=== PATIENT | female | born 1935 | race Caucasian/White ===

== ENCOUNTER 2019-12-10 13:38 | Outpatient (CLI) | payer MEDICARE, OTHER, SELFPAY ==
--- NOTE | 2019-12-10 13:47 | MM_ITS ---
WS: [id number] SCREENING DIGITAL MAMMOGRAM WITH CAD HISTORY: SCREENING COMPARISON: 09/25/2012 and 11/01/2010 Bilateral CC and MLO views submitted. Computer aided detection analyzed. Breast composition: The breasts are heterogeneously dense, which may obscure small masses. New curvil inear area of increasing calcifications near 6:00 RIGHT breast. There are additional scattered benign calcifications. Long-term stability of the mass measuring 8 mm in the inferomedial quadrant. RIGHT BREAST: Magnification views of suspicious calcification CC and MLO. True ML. MM/[place] [id number] IMPRESSION: BI-RADS: 0-Incomplete: Need additional imaging evaluation FOLLOW UP: Need Additional Imaging
== END 2019-12-10 13:39 | disposition home or self-care (01) ==
LOC: RADSHAW 13:45
PROVIDERS: Family Provider Family Medicine; PCP Family Medicine; Visit Provider Nurse Practitioner Family
DX: Z12.31 Encounter for screening mammogram for malignant neoplasm of breast (principal)
CPT/HCPCS: 77067

== ENCOUNTER 2019-12-31 09:08 | Outpatient (CLI) | payer MEDICARE, OTHER, SELFPAY ==
--- NOTE | 2019-12-31 09:16 | MM_ITS ---
WS: [id number] ADDITIONAL VIEWS RIGHT BREAST HISTORY: RT BREAST CALCIFICATIONS COMPARISON: 12/10/2019, 09/25/2012 Magnification views right CC and MLO projection. True ML also submitted. Curvilinear area of calcifications persists in the posterior medial RIGHT breast. There are several s mall clusters of calcifications which are new since 2011. Most concerning configuration is in a linea r distribution. There is additional cluster of calcifications which may be associated with a soft tis zuleyka mass which is slightly more anterior and centrally. MM/[place] [id number] IMPRESSION: BI-RADS: 4B-Suspicious: Intermediate FOLLOW-UP: Biopsy Recommended Stereotactic biopsy recommended of 2 cluster of calcifications in the posterior medial RIGHT breast. These clusters are very closely associated with each othe r and should be readily accessible for stereotactic biopsy.
== END 2019-12-31 09:09 | disposition home or self-care (01) ==
LOC: RADSHAW 09:12
PROVIDERS: Family Provider Family Medicine; PCP Family Medicine; Visit Provider Family Medicine
DX: N63.10 Unspecified lump in the right breast, unspecified quadrant (principal)
CPT/HCPCS: 77065

== ENCOUNTER 2020-01-09 12:02 | Outpatient (CLI) | payer MEDICARE, OTHER, SELFPAY ==
--- NOTE | 2020-01-09 12:09 | MM_ITS ---
WS: [id number] STEREOTACTIC RIGHT BREAST BIOPSY WITH VACUUM ASSISTANCE HISTORY: RT BREAST CALCIFICATION COMPARISON: 12/31/2019, 11/30/2019, 09/25/2012 Procedure, risks and complications were explained to the patient. Medications and prior radiographs a re reviewed. RIGHT breast calcifications are located. Calcifications are targeted in the MLO projection. The skin is cleansed with ChloraPrep and anesthetized with 1% buffered lidocaine. Deeper soft tissues anesthet ized with a combination of lidocaine and epinephrine. Small dermatome is made. Needle advanced into t he RIGHT breast. Stereotactic imaging reveals appropriate positioning adjacent calcifications. Multip le vacuum-assisted core biopsies are obtained. No complications were encountered. Post biopsy specimen radiograph reveals numerous calcifications. Biopsy clip is placed in the cavity. Post imaging reveals good placement of the clip. No migration. Pressures held for approximately 15 minutes. No bleeding. Dressing applied. Patient discharged with n o complications. There is no bleeding. With any questions or complications patient is to return. MM/[place] [id number] IMPRESSION: 1. Uncomplicated RIGHT breast stereotactic biopsy. 2. Specimen contains numerous calcifications. Pathology: Focal benign, hyalinized adenomatous change with dystrophic calcific ations. No atypia or malignancy. RECOMMENDATION: Diagnostic RIGHT mammogram in 6 months.
--- NOTE | 2020-01-09 12:09 | MM_ITS ---
WS: [id number] STEREOTACTIC RIGHT BREAST BIOPSY WITH VACUUM ASSISTANCE HISTORY: RT BREAST CALCIFICATION COMPARISON: 12/31/2019, 11/30/2019, 09/25/2012 Procedure, risks and complications were explained to the patient. Medications and prior radiographs a re reviewed. RIGHT breast calcifications are located. Calcifications are targeted in the MLO projection. The skin is cleansed with ChloraPrep and anesthetized with 1% buffered lidocaine. Deeper soft tissues anesthet ized with a combination of lidocaine and epinephrine. Small dermatome is made. Needle advanced into t he RIGHT breast. Stereotactic imaging reveals appropriate positioning adjacent calcifications. Multip le vacuum-assisted core biopsies are obtained. No complications were encountered. Post biopsy specimen radiograph reveals numerous calcifications. Biopsy clip is placed in the cavity. Post imaging reveals good placement of the clip. No migration. Pressures held for approximately 15 minutes. No bleeding. Dressing applied. Patient discharged with n o complications. There is no bleeding. With any questions or complications patient is to return. MM/[place] [id number] IMPRESSION: 1. Uncomplicated RIGHT breast stereotactic biopsy. 2. Specimen contains numerous calcifications. Pathology: Focal benign, hyalinized adenomatous change with dystrophic calcific ations. No atypia or malignancy. RECOMMENDATION: Diagnostic RIGHT mammogram in 6 months.
--- NOTE | 2020-01-09 12:09 | MM_ITS ---
WS: [id number] STEREOTACTIC RIGHT BREAST BIOPSY WITH VACUUM ASSISTANCE HISTORY: RT BREAST CALCIFICATION COMPARISON: 12/31/2019, 11/30/2019, 09/25/2012 Procedure, risks and complications were explained to the patient. Medications and prior radiographs a re reviewed. RIGHT breast calcifications are located. Calcifications are targeted in the MLO projection. The skin is cleansed with ChloraPrep and anesthetized with 1% buffered lidocaine. Deeper soft tissues anesthet ized with a combination of lidocaine and epinephrine. Small dermatome is made. Needle advanced into t he RIGHT breast. Stereotactic imaging reveals appropriate positioning adjacent calcifications. Multip le vacuum-assisted core biopsies are obtained. No complications were encountered. Post biopsy specimen radiograph reveals numerous calcifications. Biopsy clip is placed in the cavity. Post imaging reveals good placement of the clip. No migration. Pressures held for approximately 15 minutes. No bleeding. Dressing applied. Patient discharged with n o complications. There is no bleeding. With any questions or complications patient is to return. MM/MM surgical specimen RT IMPRESSION: 1. Uncomplicated RIGHT breast stereotactic biopsy. 2. Specimen contains numerous calcifications. Pathology: Focal benign, hyalinized adenomatous change with dystrophic calcific ations. No atypia or malignancy. RECOMMENDATION: Diagnostic RIGHT mammogram in 6 months.
[2020-01-09 12:47] LABS: INR 1.14 (0.8-1.2)
== END 2020-01-09 12:03 | disposition home or self-care (01) ==
LOC: RADSHAW 12:05
PROVIDERS: Family Provider Family Medicine; PCP Family Medicine; Visit Provider Family Medicine
DX: R92.1 Mammographic calcification found on diagnostic imaging of breast (principal); Z01.812 Encounter for preprocedural laboratory examination; Z98.890 Other specified postprocedural states
CPT/HCPCS: 19081; 36415; 77065; 85610; 88305; J2001

== ENCOUNTER → 2020-04-21 10:07 | Outpatient (BNVA) | payer MEDICARE, OTHER, SELFPAY | PROVIDERS: Family Provider Family Medicine; PCP Family Medicine; Visit Provider Urology | DX: N39.0 Urinary tract infection, site not specified (principal) | CPT/HCPCS: 81001 ==

== ENCOUNTER → 2020-08-26 13:04 | Outpatient (BNVA) | payer MEDICARE, OTHER, SELFPAY | PROVIDERS: Family Provider Family Medicine; PCP Family Medicine; Visit Provider Urology | DX: N39.0 Urinary tract infection, site not specified (principal) | CPT/HCPCS: 81001 ==

== ENCOUNTER 2020-08-31 12:58 | Observation (INO) | payer MEDICARE, OTHER, SELFPAY ==
[2020-08-31 13:06] VITALS: BP 145/77; PULSE 95; RESP 18; TEMP 36.4; O2SAT 100; BMI 25.0
--- NOTE | 2020-08-31 13:24 | ECG_ITS ---
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 Measurements Intervals [place] Rate: 97 P: -3 ME: 141 QRS: 16 QRSD: 74 T: 38 QT: 320 QTc: 407 Interpretive Statements SINUS RHYTHM WARNING: DATA QUALITY MAY AFFECT INTERPRETATION Compared to ECG 12/31/2017 03:45:42 No significant changes Electronically Signed On 08-31-2020 21:40:45 CDT by Roxi Dickson M.D. [email or web address]/store/[id number] f
--- NOTE | 2020-08-31 13:25 | XRR_ITS ---
PROCEDURE INFORMATION: Exam: XR Chest, 1 View Exam date and time: 08/31/2020 1:28 PM Age: 85 years old Clinical indication: Cough and dyspnea and shortness of breath; Additional info: Dyspnea/cough TECHNIQUE: Imaging protocol: XR of the chest Views: 1 view. COMPARISON: CR Chest 1 [place] [id number] 12/31/2017 3:09 AM FINDINGS: Lungs: Unremarkable. No consolidation. Pleural space: Unremarkable. No pleural effusion. No pneumothorax. Heart/Mediastinum: Unremarkable. No cardiomegaly. Bones/joints: Unremarkable. XR/XR chest 1V portable [id number] IMPRESSION: No acute findings.
--- NOTE | 2020-08-31 13:27 | W.ED.GENADLT ---
HPI - General Adult General: Chief complaint: General Medical Stated complaint: sent from [facility]/ [facility]ri? Time Seen by Provider: 08/31/20 13:23 History of Present Illness: HPI narrative: 85-year-old female presents to the emergency room with complaints of rapid heart rate. Began this morning she was short of breath and tachycardic. She was seen at a local clinic and referred here. She had some chest discomfort this morning associated with this but that is resolved as well at this time she is pain-free. She denies any previous episodes like this. She has no known history of coronary artery disease. Onset (ago): hour(s) Location: chest Radiation: non-radiation Severity: moderate Relieving factors: none Exacerbating factors: none Associated symptoms: Reports chest pain and dyspnea; Deny malaise, nausea, rash or vomiting Review of Systems Const: Denies: fever(s), chills, body aches, change in appetite, fatigue or malaise ENMT: Denies: throat pain, ear or mastoid pain, nasal discharge or nasal congestion Card: Reports: chest pain Resp: Reports: dyspnea GI: Denies: abdominal pain, nausea, vomiting, hematemesis, coffee ground emesis, diarrhea, constipation, bloating, hematochezia or melena : Denies: flank pain, difficulty voiding, dysuria, urinary frequency or urinary urgency Skin/Breast: Denies: rash or pruritus PFSH ED PFSH: Medical History Diabetes HTN (hypertension) Hypothyroidism Recurrent UTI Urgency incontinence Surgical History H/O: knee surgery History of back surgery Family History Sister Cancer Social History Smoking and tobacco status: never smoked Alcohol intake: never Adopted: No Caregiver/support person: No Lives independently: Yes Marital status: Current occupational status: retired History of recent travel: No Current gender identity: Female Physical Exam Const: COMMON NORMALS: no acute distress GENERAL APPEARANCE: cooperative and comfortable ORIENTATION/CONSCIOUSNESS: Yes awake, Yes oriented to person, Yes oriented to place and Yes oriented to time HENMT: COMMON NORMALS: normocephalic, atraumatic and hearing grossly normal bilaterally HEAD & SCALP: normocephalic and atraumatic Neck/C-Spine: COMMON NORMALS: no JVD Resp: COMMON NORMALS: normal respiratory effort, No retractions, No use of accessory muscles and clear to auscultation bilaterally AUSCULTATION: clear to auscultation bilaterally Cardio: COMMON NORMALS: no JVD, regular rate, regular rhythm and No murmurs present (Cardio) RATE: regular rate RHYTHM: regular rhythm GI: COMMON NORMALS: Soft to palpation and No hepatosplenomegaly present AUSCULTATION: Yes normoactive bowel sounds PALPATION: Yes Soft to palpation, No Tenderness to palpation present (GI), No Guarding due to palpation present (GI) and Yes No hepatosplenomegaly present Extremity: COMMON NORMALS: normal to inspection, capillary refill normal, no clubbing, cyanosis or edema, no calf tenderness and no pedal edema Neuro: SENSORIUM/ORIENTATION: Yes oriented to person, Yes oriented to place and Yes oriented to time Skin: COMMON NORMALS: no rashes or lesions noted GENERAL SKIN EXAM: no rashes or lesions noted Course Vital Signs: Vital signs: Vital Signs Temperature 97.7 F 09/01/20 03:51 Pulse Rate 56 L 09/01/20 03:51 Respiratory Rate 20 H 09/01/20 03:51 Blood Pressure 137/71 09/01/20 03:51 Pulse Oximetry 97 09/01/20 03:51 MDM - General Adult MDM Narrative: Medical decision making narrative: Patient had a positive delta troponin. Her EKG remains normal and no documentation of A. fib although what she described certainly does sound like it. We will try to see if the outlying clinic she was seen at had an EKG or rhythm strip done to add to the chart discussed Dr. Pierce patient will be admitted for further evaluation. Lab Data: Labs: Lab Results 08/31/20 08/31/20 08/31/20 Range/Units 13:30 13:30 13:30 WBC 14.8 H (4.0-10.0) 10^3/ uL RBC 4.20 (4.1-5.3) 10^6/u L Hgb 12.5 (11.5-15.3) g/dL Hct 39.6 (37.0-47.0) % MCV 94.3 (81-99) fL MCH 29.8 (28.0-34.0) pg MCHC 31.6 (30.0-36.0) g/dL RDW 13.3 (12.1-15.1) % Plt Count 273 (130-400) 10^3/c mm MPV 11.9 H (7.4-10.4) fL Neut % (Auto) 55.4 % Lymph % (Auto) 35.2 % [place] % (Auto) 6.6 % Eos % (Auto) 1.4 % Baso % (Auto) 0.9 % Neut # (Auto) 8.20 H (1.8-7.7) 10^3/u L Lymph # (Auto) 5.2 H (0.8-4.8) 10^3/u L [place] # (Auto) 1.0 H (0.2-0.9) 10^3/u L Eos # (Auto) 0.2 (0.0-0.8) 10^3/u L Baso # (Auto) 0.1 (0.0-0.1) 10^3/u L Nucleated RBC % (a uto) 0 % Nucleated RBCs # 0.0 /100WBC Sodium 141 (136-145) mmol/L Potassium 4.3 (3.5-5.1) mmol/L Chloride 106 (98-107) mmol/L Carbon Dioxide 22 (22-29) mmol/L Anion Gap 17.3 (5-19) BUN 22 (8-23) mg/dL Creatinine 1.3 H (0.5-0.9) mg/dL GFR Calculation Not Reportable Glucose 127 H (65-115) mg/dL Calculated Osmolal ity 297 H (285-295) mOsm/k g Calcium 9.9 (8.5-10.5) mg/dL Total Bilirubin 0.4 (0.15-1.2) mg/dL AST 23 (0-32) U/L ALT 22 (0-33) U/L Alkaline Phosphata se 96 (35-105) IU/L Troponin T Baselin e 41 H (0-10) ng/L Troponin T 120 Min [place] (0-10) ng/L Delta Troponin T (0-10) ABS# Total Protein 6.6 (6.6-8.7) g/dL Albumin 4.3 (3.5-5.2) g/dL Globulin 2.3 (1.3-4.6) g/dL TSH 1.50 (0.27-4.20) uIU/ mL 08/31/20 08/31/20 Range/Units 15:30 15:30 WBC (4.0-10.0) 10^3/ uL RBC (4.1-5.3) 10^6/u L Hgb (11.5-15.3) g/dL Hct (37.0-47.0) % MCV (81-99) fL MCH (28.0-34.0) pg MCHC (30.0-36.0) g/dL RDW (12.1-15.1) % Plt Count (130-400) 10^3/c mm MPV (7.4-10.4) fL Neut % (Auto) % Lymph % (Auto) % [place] % (Auto) % Eos % (Auto) % Baso % (Auto) % Neut # (Auto) (1.8-7.7) 10^3/u L Lymph # (Auto) (0.8-4.8) 10^3/u L [place] # (Auto) (0.2-0.9) 10^3/u L Eos # (Auto) (0.0-0.8) 10^3/u L Baso # (Auto) (0.0-0.1) 10^3/u L Nucleated RBC % (a uto) % Nucleated RBCs # /100WBC Sodium (136-145) mmol/L Potassium (3.5-5.1) mmol/L Chloride (98-107) mmol/L Carbon Dioxide (22-29) mmol/L Anion Gap (5-19) BUN (8-23) mg/dL Creatinine (0.5-0.9) mg/dL GFR Calculation Glucose (65-115) mg/dL Calculated Osmolal ity (285-295) mOsm/k g Calcium (8.5-10.5) mg/dL Total Bilirubin (0.15-1.2) mg/dL AST (0-32) U/L ALT (0-33) U/L Alkaline Phosphata se (35-105) IU/L Troponin T Baselin e (0-10) ng/L Troponin T 120 Min [place] 45.84 H (0-10) ng/L Delta Troponin T 4.84 (0-10) ABS# Total Protein (6.6-8.7) g/dL Albumin (3.5-5.2) g/dL Globulin (1.3-4.6) g/dL TSH Cancelled (0.27-4.20) uIU/ mL Discharge Plan Discharge Patient Disposition: Admitted As Inpatient Admit Provider: Eben Pierce Discharge Date/Time: 08/31/20 18:10 Coding Level of Care Code ED Superintendent Greens for Laura Martinez
[2020-08-31 13:30] VITALS: BP 124/78; PULSE 92; RESP 19; O2SAT 97
[2020-08-31 13:39] LABS: Basophils # 0.1 10^3/uL (0.0-0.1); Basophils % 0.9 %; Eosinophils # 0.2 10^3/uL (0.0-0.8); Eosinophils % 1.4 %; Hematocrit 39.6 % (37.0-47.0); Hemoglobin 12.5 g/dL (11.5-15.3); Lymphocytes # 5.2 10^3/uL (0.8-4.8); Lymphocytes % 35.2 %; Mean Corpuscular HGB Conc 31.6 g/dL (30.0-36.0); Mean Corpuscular Hemoglobin 29.8 pg (28.0-34.0); Mean Corpuscular Volume 94.3 fL (81-99); Mean Platelet Volume 11.9 fL (7.4-10.4); Monocytes % 6.6 %; Neutrophils % 55.4 %; Nucleated Red Blood Cells % 0 %; Platelet Count 273 10^3/cmm (130-400); Red Cell Distribution Width 13.3 % (12.1-15.1); White Blood Count 14.8 10^3/uL (4.0-10.0)
[2020-08-31 14:06] LABS: Troponin(5th) Baseline 41 ng/L (0-10)
[2020-08-31 14:11] LABS: Alanine Aminotransferase 22 U/L (0-33); Albumin Level 4.3 g/dL (3.5-5.2); Alkaline Phosphatase 96 IU/L (35-105); Aspartate Amino Transferase 23 U/L (0-32); Blood Urea Nitrogen 22 mg/dL (8-23); Calcium 9.9 mg/dL (8.5-10.5); Carbon Dioxide 22 mmol/L (22-29); Chloride 106 mmol/L (98-107); Globulin 2.3 g/dL (1.3-4.6); Glucose 127 mg/dL (65-115); Osmolality Calculated 297 mOsm/kg (285-295); Sodium 141 mmol/L (136-145); Total Bilirubin 0.4 mg/dL (0.15-1.2); Total Protein 6.6 g/dL (6.6-8.7)
[2020-08-31 14:17] LABS: Anion Gap 17.3 (5-19)
[2020-08-31 14:18] LABS: Potassium 4.3 mmol/L (3.5-5.1)
[2020-08-31 14:48] VITALS: BP 122/74; PULSE 69; RESP 20; O2SAT 95
--- NOTE | 2020-08-31 15:24 | ECG_ITS ---
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 Measurements Intervals [place] Rate: 67 P: 47 AL: 159 QRS: 48 QRSD: 88 T: 67 QT: 402 QTc: 426 Interpretive Statements SINUS RHYTHM Compared to ECG 08/31/2020 15:23:56 No significant changes Electronically Signed On 08-31-2020 21:48:29 CDT by Roxi Dickson M.D. [id number]
[2020-08-31 15:57] LABS: Troponin 5 2HR 45.84 ng/L (0-10); Troponin 5 2HR Delta 4.84 ABS# (0-10)
[2020-08-31 16:35] VITALS: BP 145/95; PULSE 68; RESP 20; O2SAT 97
--- NOTE | 2020-08-31 17:40 | PM.HP ---
Providers/Chief Complaint Admitting Physician: Eben Pierce MD Primary Care Provider: Inocente Kennedy MD Chief Complaint: sent from [facility]? History of Present Illness Stephanie Quinones is a 85 year old female with past medical history of hypertension, diabetes, hypothyroidism, recurrent UTI on prophylactic antibiotic, was admitted after experiencing an episode of racing of heart this morning, the episode lasted for about couple of minutes, at that time she felt, mild substernal chest, dizziness, nausea. She subsequently came to [facility], EKG done at [facility], was suggestive of possible A. fib with RVR with heart rate in 160S. We do not have any EKG from [facility]. At the time of interview, she denied any, chest pain shortness of breath, cough, fever, nausea vomiting, chest pain upon inspiration, any sick contact. Review of Systems General: Reports: 10 or more systems reviewed and unremarkable except in HPI and below Const: Denies: fever(s), chills, body aches, change in appetite or diaphoresis Card: Denies: palpitations, edema, swelling of feet/ankles, dyspnea on exertion, orthopnea or leg pain with exertion Resp: Denies: dyspnea, productive cough, wheezing or pain on inspiration GI: Denies: abdominal pain, nausea, vomiting, diarrhea or constipation : Denies: flank pain Musc: Denies: back pain, extremity pain or extremity swelling Neuro: Denies: headache(s), difficulty walking or confusion Medications/Allergies Home Medications Medication Instructions Recorded Confirmed Last Taken Type alprazolam 0.5 mg tablet 0.5 mg PO DAILY 02/27/20 08/26/20 Unknown History aspirin 325 mg tablet 325 mg PO DAILY 02/27/20 08/26/20 Unknown History hydrochlorothiazide 12.5 mg tablet 12.5 mg PO DAILY 02/27/20 08/26/20 Unknown History levothyroxine 112 mcg capsule 112 mcg PO DAILY 02/27/20 08/26/20 Unknown History losartan 100 mg tablet 100 mg PO DAILY 02/27/20 08/26/20 Unknown History metformin 500 mg tablet 500 mg PO DAILY 02/27/20 08/26/20 Unknown History metoprolol tartrate 50 mg tablet 50 mg PO DAILY 02/27/20 08/26/20 Unknown History omeprazole 20 mg capsule,delayed 20 mg PO DAILY 02/27/20 08/26/20 Unknown History release methenamine hippurate 1 gram tablet 1 gm PO BID #60 tab 08/26/20 08/26/20 Unknown Rx Allergies Allergy/AdvReac Type Severity Reaction Status Date / Time codeine Allergy ADR-Cramping Verified 04/21/20 10:05 of the Muscles nitrofurantoin Allergy ADR-Halluci Verified 08/31/20 13:10 [From Macrobid] nating PFSH Acute PFSH: Medical History Diabetes HTN (hypertension) Hypothyroidism Recurrent UTI Urgency incontinence Surgical History H/O: knee surgery History of back surgery Family History Sister Cancer Social History Smoking and tobacco status: never smoked Alcohol intake: never Adopted: No Caregiver/support person: No Lives independently: Yes Marital status: Current occupational status: retired History of recent travel: No Current gender identity: Female Vitals/I&O/Wt Last Vital Signs Temp 97.5 F L 08/31/20 13:06 Pulse 68 08/31/20 16:35 Resp 20 H 08/31/20 16:35 BP 145/95 08/31/20 16:35 Pulse Ox 97 08/31/20 16:35 Weight last 48 hrs Weight 70.307 kg Physical Exam Const: COMMON NORMALS: patient oriented x3 HENMT: COMMON NORMALS: normocephalic, atraumatic, hearing grossly normal bilaterally and external ears normal HEAD & SCALP: normocephalic and atraumatic EXTERNAL EAR: Yes external ears normal Eye: COMMON NORMALS: no scleral icterus GENERAL EYE: appearance normal, both eyes and all related structures Chest: COMMONS NORMALS: normal inspection of the chest and normal palpation of entire chest wall CHEST: Yes Symmetrical chest wall rise Resp: COMMON NORMALS: normal respiratory effort, No retractions, No use of accessory muscles and clear to auscultation bilaterally EFFORT & INSPECTION: Yes symmetric chest movement AUSCULTATION: clear to auscultation bilaterally Cardio: COMMON NORMALS: regular rate, regular rhythm, S1 normal heart sound present, S2 normal heart sound present, No gallops present (Cardio), No murmurs present (Cardio), No rub (Cardio) and Peripheral pulses 2+ throughout RATE: regular rate RHYTHM: regular rhythm HEART SOUNDS: S1 normal heart sound present and S2 normal heart sound present PERIPHERAL PULSES: Peripheral pulses 2+ throughout GI: COMMON NORMALS: Normal to inspection, nondistended, normoactive bowel sounds present, Soft to palpation, non-tender, No hepatosplenomegaly present and no masses AUSCULTATION: Yes normoactive bowel sounds PALPATION: Yes Soft to palpation and Yes No hepatosplenomegaly present RECTAL EXAM: deferred Extremity: COMMON NORMALS: no clubbing, cyanosis or edema and no pedal edema Neuro: COMMON NORMALS: patient oriented x3 Data : 08/31/20 13:30 08/31/20 13:30 CXR: I personally reviewed and interpreted this imaging study as follows: My impression: No infiltrate, no pulmonary vascular congestion. Radiologist's impression: No acute findings. EKG 1: I personally reviewed and interpreted this EKG as follows: My Interpretation: Normal sinus rhythm Performance Tester Interpretation: Normal sinus rhythm A&P Assessment and plan (1) Abnormality of heart beat: 85 year old female with past medical history of hypertension, diabetes, hypothyroidism, recurrent UTI on prophylactic antibiotic, was admitted after experiencing an episode of racing of heart this morning, the episode lasted for about couple of minutes, at that time she felt, mild substernal chest, dizziness, nausea. She subsequently came to [facility], EKG done at [facility], was suggestive of possible A. fib with RVR with heart rate in 160S. We do not have any EKG from [facility]. 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 Continue to monitor BMP. Status: Acute (3) HTN (hypertension): Continue metoprolol 50 mg q12 h daily. Status: Acute (4) Diabetes: Continue low-dose sliding scale insulin. HbA1c Status: Acute Additional A&P Information DVT prophylaxsis: Lovenox 40 subcu daily CODE STATUS: Full code Attestations Medical Necessity Statement*: Patient needs more than 2 nights stay for evaluation of abnormal heart beat and MIHAI Coding Level of Care Code Acute Metal Sorter for Chg Fwd Diagnoses Abnormality of heart beat R00.9 MIHAI (acute kidney injury) N17.9 HTN (hypertension) I10 Diabetes E11.9
[2020-08-31 17:50] VITALS: BP 157/82; PULSE 69; RESP 19; O2SAT 96
--- NOTE | 2020-08-31 19:24 | ECG_ITS ---
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 Measurements Intervals [place] Rate: 67 P: 30 [place]: 167 QRS: 4 QRSD: 77 T: 31 QT: 387 QTc: 409 Interpretive Statements SINUS RHYTHM Compared to ECG 08/31/2020 12:59:38 No significant changes Electronically Signed On 08-31-2020 21:47:23 CDT by Roxi Dickson M.D. [id number]
[2020-08-31 19:54] VITALS: BP 129/68; PULSE 66; RESP 16; TEMP 36.8; O2SAT 99
[2020-08-31 20:19] LABS: Glucose Point of Care 229 mg/dL (70-110)
[2020-08-31] MEDS: sodium chloride 0.9% 1,000 ML 75 ML IV (20:33)
[2020-08-31] MEDS: metoprolol tartrate 50 mg Tablet PO (20:37)
[2020-08-31] MEDS: enoxaparin 40 mg/0.4 mL Syringe SUBCUT (20:37)
--- NOTE | 2020-08-31 21:48 | PC.NURSE ---
Patient requesting her sleeping pill called family to verify that she takes xanax 0.5 mg at bedtime daily. Called Doctor Mj and notified him of request and telephone order verify read back for Xanax 0.5mg PO at bedtime given
[2020-08-31] MEDS: ALPRAZolam 0.5 mg Tablet PO (22:08)
--- NOTE | 2020-08-31 23:32 | PC.NURSE ---
Patient arrived to [facility] at 1820. Patient is alert and orientated. Patient is resting in bed with eyes closed. Call light is within reach. Continue care.
[2020-09-01] VITALS (7 sets, daily range): BP systolic 106–165; BP diastolic 46–76; PULSE 56–63; RESP 18–23; TEMP 36.5–36.7; O2SAT 96–100
--- NOTE | 2020-09-01 04:36 | PC.NURSE ---
Patient resting quietly in room with eyes open watching TV. Patient denies any complaints of pain at this time, call light is within reach, continue care.
[2020-09-01] MEDS: metoprolol tartrate 50 mg Tablet PO (04:57)
[2020-09-01 05:33] LABS: Basophils # 0.1 10^3/uL (0.0-0.1); Basophils % 0.7 %; Eosinophils # 0.2 10^3/uL (0.0-0.8); Eosinophils % 3.1 %; Hematocrit 33.3 % (37.0-47.0); Hemoglobin 10.5 g/dL (11.5-15.3); Lymphocytes # 2.7 10^3/uL (0.8-4.8); Lymphocytes % 37.2 %; Mean Corpuscular HGB Conc 31.5 g/dL (30.0-36.0); Mean Corpuscular Hemoglobin 29.5 pg (28.0-34.0); Mean Corpuscular Volume 93.5 fL (81-99); Mean Platelet Volume 12.2 fL (7.4-10.4); Monocytes # 0.5 10^3/uL (0.2-0.9); Monocytes % 7.4 %; Neutrophils # 3.75 10^3/uL (1.8-7.7); Neutrophils % 51.2 %; Nucleated Red Blood Cells % 0 %; Platelet Count 159 10^3/cmm (130-400); Red Blood Count 3.56 10^6/uL (4.1-5.3); Red Cell Distribution Width 13.2 % (12.1-15.1); White Blood Count 7.3 10^3/uL (4.0-10.0)
[2020-09-01 06:00] LABS: Alanine Aminotransferase 17 U/L (0-33); Albumin Level 3.6 g/dL (3.5-5.2); Alkaline Phosphatase 69 IU/L (35-105); Anion Gap 12.8 (5-19); Aspartate Amino Transferase 19 U/L (0-32); Blood Urea Nitrogen 22 mg/dL (8-23); Calcium 9.5 mg/dL (8.5-10.5); Carbon Dioxide 23 mmol/L (22-29); Chloride 108 mmol/L (98-107); Globulin 2.5 g/dL (1.3-4.6); Glucose 101 mg/dL (65-115); Osmolality Calculated 293 mOsm/kg (285-295); Potassium 3.8 mmol/L (3.5-5.1); Sodium 140 mmol/L (136-145); Total Bilirubin 0.6 mg/dL (0.15-1.2); Total Protein 6.1 g/dL (6.6-8.7)
[2020-09-01] MEDS: sodium chloride 0.9% 1,000 ML 75 ML IV (06:00)
[2020-09-01 06:11] LABS: Magnesium 1.7 mg/dL (1.7-2.3); Phosphorus 3.5 mg/dL (2.5-4.5)
[2020-09-01 06:12] LABS: INR 1.21 (0.8-1.2)
[2020-09-01 06:13] LABS: Partial Thromboplastin Time 32.6 SECONDS (23.9-36.7)
[2020-09-01 06:14] LABS: Glucose Point of Care 105 mg/dL (70-110)
--- NOTE | 2020-09-01 07:00 | USCV_ITS ---
Joni Stephanie Age: 85 Gender: F : 1935 Exam Date: 09/01/2020 06:18 Ordering Phys: Eben Pierce MD Technologist: Cynthia Abrams Exam Location: [facility] – [place] Indication: CHEST PAIN BP: 137 / 71 HR: 52 Rhythm: Sinus Technical Quality: Adequate MEASUREMENTS (Male / Female) Normal Values 2D ECHO LV Diastolic Diameter PLAX 3.6 cm 4.2 - 5.9 / 3.9 - 5.3 cm LV Systolic Diameter PLAX 2.6 cm LV Chamber Size 2.9 cm IVS Diastolic Thickness 1.1 cm 0.6 - 1.0 / 0.6 - 0.9 cm IVS Systolic Thickness 1.3 cm LVPW Diastolic Thickness 1.7 cm 0.6 - 1.0 / 0.6 - 0.9 cm LVPW Systolic Thickness 2.0 cm RV Chamber Size 2.8 cm LVOT Diameter 2.0 cm LV Ejection Fraction 2D Teich 53.6 % LV Ejection Fraction MOD 2C 62.1 % LV Ejection Fraction 2C AL 63.8 % LA Diameter 3.6 cm LA Width 3.3 cm LA Height 3.8 cm RA Width 3.0 cm RA Height 4.6 cm Aorta at Sinotubular Diameter 2.4 cm M-MODE LV Diastolic Diameter MM 5.4 cm 4.2 - 5.9 / 3.9 - 5.3 cm LV Systolic Diameter MM 4.1 cm LV Ejection Fraction MM Teich 48.7 % IVS Diastolic Thickness MM 0.9 cm 0.6 - 1.0 / 0.6 - 0.9 cm IVS Systolic Thickness MM 1.3 cm LVPW Diastolic Thickness MM 0.8 cm 0.6 - 1.0 / 0.6 - 0.9 cm LVPW Systolic Thickness MM 1.5 cm Aortic Annulus Diameter 3.0 cm LA Ao Ratio MM 1.3 MV E Point Septal Separation 0.9 cm DOPPLER AV Peak Velocity 113.0 cm/s LVOT Peak Velocity 100.0 cm/s AV Area Cont Eq vti 3.1 cm squared AV Area Cont Eq pk 2.8 cm squared MV Area PHT 2.4 cm squared Mitral E to A Ratio 1.0 MV E' Velocity 53.0 cm/s Mitral E to MV E' Ratio 9.2 Mitral E to LV E' Lateral Ratio 8.1 Mitral E to LV E' Septal Ratio 10.6 TR Peak Velocity 259.8 cm/s TR Peak Gradient 27.0 mmHg TV Peak E Velocity 76.0 cm/s Right Atrial Pressure 3.0 mmHg Pulmonary Artery Systolic Pressu 30.0 mmHg PV Peak Velocity 80.0 cm/s RV Acceleration Time 0.1 s RV Ejection Time 0.4 s RV AcT/ET 0.3 FINDINGS Left Ventricle Normal left ventricular size, systolic function and wall thickness, with no regional wall motion abnormalities. Left ventricular ejection fraction is estimated at 65-70 % visually and 66% by modified biplane method. Normal diastolic function. Right Ventricle Normal right ventricular size and systolic function. Right ventricular systolic pressure 30 mmHg. Right Atrium Normal right atrial size. Right atrial pressure estimated at 3 mmHg. Left Atrium Normal left atrial size. Mitral Valve Mildly thickened mitral valve. No mitral valve stenosis. Trace mitral valve regurgitation. Aortic Valve Mildly thickened trileaflet aortic valve. No aortic valve stenosis. No aortic valve regurgitation. Tricuspid Valve Structurally normal tricuspid valve. No tricuspid valve stenosis. Mild tricuspid valve regurgitation. Pulmonic Valve Pulmonic valve not well visualized. Trace pulmonary valve regurgitation. Pericardium No pericardial effusion. Aorta Normal size aortic root and proximal ascending aorta. CONCLUSIONS 1. Normal left ventricular size, systolic function and wall thickness, with no regional wall motion abnormalities. Left ventricular ejection fraction is estimated at 65-70 % visually and 66% by modified biplane method. Normal diastolic function. 2. Pulmonary artery pressure estimated at 30 mmHg. 3. Mild tricuspid valve regurgitation. 4. No prior similar studies to compare. Flower Majano MD (Electronically Signed) Final Date: 01 September 2020 14:01 S
[2020-09-01] MEDS: pantoprazole DR 40 mg Tablet PO (08:39)
[2020-09-01] MEDS: amlodipine 10 mg Tablet PO (08:39)
[2020-09-01] MEDS: aspirin 81 mg Chew Tablet PO (08:39)
[2020-09-01] MEDS: cefTRIAXone 1,000 MG in sodium chloride 0.9% (plus) 50 ML 100 MG IV (08:40)
--- NOTE | 2020-09-01 09:36 | PC.CHAP ---
Pastoral Care Encounter/Spiritual Assessment Type of Contact [] Declined auto accessories installer visit [] Patient/Family/Request visit [] Outpatient visit [] Follow-up visit [] Physician referral [] Code/Alert [] Routine visit [] Staff referral [] Actively dying [x] Patient sleeping [] Family support [] [] Out of room [] Palliative care [] [] Receiving care in room [] Pre-surgical visit [] Trauma [] Long length of stay [] ICU visit [] Other: Relational/Emotional Strength [] Patient feels connected with others/family/visitors/staff [] Distress [] Loneliness/isolation [] Abandonment Spirituality of Patient [] Person of [place] [] Attends Presybeterian of their [place] [] Believes in Prayer [] Reads Bible or Episcopal materials [] There are Spiritual issues to be addressed Other Sales Support Worker Interventions [x] Prayer [] Active listening [] Non-anxious presence [] Spiritual/emotional support [] Crisis/trauma care [] Spiritual counseling [] Bereavement support [] Provided bereavement packet [] Provided Bible/devotional materials [] Provided toy/stuffed animal, coloring book to patient or family member [] Provided Communion [] Anointing/[place] [] Salvation [x] Completed spiritual assessment [] Other: Impact on Illness or Injury [] Angry [] Fearful [] Anxious [] Often cries [] Exhaustion [] Unable to work [] Unable to attend mormon [] Unable to walk/stand [] Unable to read [] Unable to drive [] Unable to eat/drink [] Unable to sleep [] Unable to be with family [] Patient intubated [] Other: Summary Time spent with patient
[2020-09-01] MEDS: levothyroxine 112 mcg Tablet PO (10:04)
[2020-09-01 11:03] LABS: Glucose Point of Care 172 mg/dL (70-110)
--- NOTE | 2020-09-01 12:21 | PM.CONSULT ---
Providers/Reason For Consult Consulting Physican/Specialty*: Dr. Majaon, cardiology Reason for Consult*: Tachycardia and palpitations Attending Physician: Eben Pierce MD Primary Care Provider: Inocente Kennedy MD History of Present Illness History of Present Illness Stephnaie Quinones is a 85 year old female presented to the ER with chief complaint of heart racing. Patient states on Monday morning all of a sudden she started having shortness of breath with symptoms of heart racing. She went down and sat on the sofa without any significant improvement and that is when she went to [facility]. Apparently at that time EKG was done and she was found to be in atrial fibrillation. I do not have the EKG available to review. She was sent to the ER and on arrival here she has been in sinus rhythm or sinus bradycardia. Overnight on telemetry she has not had any episodes of atrial fibrillation. At the time of examination she denies having any chest pain shortness of breath and is eager to go home. Around 6 years back she was seen by Dr. Demarco and a Holter monitor was done. She states that at that time she had lost her and stayed up in the hospital with chest pain for at night. No significant arrhythmias were noted on Holter monitor except for frequent multifocal PVCs. She had a stress test that did not show any ischemia at that point. Review of Systems General: Reports: 10 or more systems reviewed and unremarkable except in HPI and below Const: Denies: fever(s), chills, body aches, change in appetite or diaphoresis Eyes: Denies: change in vision ENMT: Denies: change in hearing or epistaxis Card: Denies: palpitations, edema, swelling of feet/ankles, dyspnea on exertion, orthopnea or leg pain with exertion Resp: Denies: dyspnea, productive cough, wheezing or pain on inspiration GI: Denies: abdominal pain, nausea, vomiting, diarrhea or constipation : Denies: flank pain Musc: Denies: back pain, extremity pain or extremity swelling Neuro: Denies: headache(s), difficulty walking or confusion Meds/Allergies Home Medications and Allergies Home Medications Medication Instructions Recorded Confirmed Last Taken Type alprazolam 0.5 mg tablet 0.5 mg PO TID PRN 02/27/20 09/01/20 Unknown History aspirin 325 mg tablet 325 mg PO DAILY 02/27/20 09/01/20 Unknown History hydrochlorothiazide 12.5 mg tablet 12.5 mg PO DAILY 02/27/20 09/01/20 Unknown History levothyroxine 112 mcg capsule 112 mcg PO DAILY 02/27/20 09/01/20 Unknown History omeprazole 20 mg capsule,delayed 20 mg PO DAILY 02/27/20 09/01/20 Unknown History release methenamine hippurate 1 gram tablet 1 gm PO BID #60 tab 08/26/20 09/01/20 Unknown Rx Vitamin D3 1 tab PO DAILY 09/01/20 09/01/20 Unknown History citalopram [Celexa] See Rx Instructions .ROUTE .COMPLEX 09/01/20 09/01/20 Unknown History diclofenac sodium 75 mg PO BID PRN 09/01/20 09/01/20 Unknown History fluticasone propionate [Flonase 1 spray INTRANASAL BID PRN 09/01/20 09/01/20 Unknown History Allergy Relief] metformin 500 mg PO DAILY 09/01/20 09/01/20 Unknown History metoprolol succinate 50 mg PO DAILY 09/01/20 09/01/20 Unknown History tramadol 50 mg PO QID PRN 09/01/20 09/01/20 Unknown History Allergies Allergy/AdvReac Type Severity Reaction Status Date / Time codeine Allergy ADR-Cramping Verified 04/21/20 10:05 of the Muscles nitrofurantoin Allergy ADR-Halluci Verified 08/31/20 13:10 [From Macrobid] nating Current Medications Current Medications Generic Name Dose Route Start Last Admin Trade Name Freq PRN Reason Stop Dose Admin Alprazolam 0.5 mg 08/31/20 21:00 08/31/20 22:08 Xanax PO 0.[address] Administration Amlodipine Besylate 10 mg 09/01/20 09:00 09/01/20 08:39 Norvasc PO [address] Administration Aspirin 81 mg 09/01/20 09:00 09/01/20 08:39 Aspirin Chewable PO [address] Administration Enoxaparin Sodium 40 mg 08/31/20 18:00 08/31/20 20:37 [address]ox SUBCUT [address] Administration Sodium Chloride 1,000 mls @ 75 mls/hr 08/31/20 17:30 09/01/20 06:00 Sodium Chloride 0.9% IV 75 mls/hr .[id number] LANE Administration Ceftriaxone Sodium 1,000 mg/ 50 mls @ 100 mls/hr 09/01/20 09:00 09/01/20 09:10 Sodium Chloride IV Infused DAILY LANE Infusion Protocol Insulin Aspart 0 unit 08/31/20 18:00 09/01/20 11:14 Novolog SUBCUT 2 unit WM&BEDTIME LANE Administration Protocol Levothyroxine Sodium 112 mcg 09/01/20 09:00 09/01/20 10:04 Synthroid PO [address] Administration Metoprolol Tartrate 50 mg 08/31/20 17:45 09/01/20 04:57 Lopressor PO [address] Administration Pantoprazole Sodium 40 mg 09/01/20 09:00 09/01/20 08:39 Protonix PO [address] Administration PFSH Acute PFSH: Medical History (Updated 09/01/20 @ 14:11 by Flower Majano MD) Diabetes HTN (hypertension) Hypothyroidism Recurrent UTI Urgency incontinence Surgical History H/O: knee surgery History of back surgery Family History Sister Cancer Social History Smoking and tobacco status: never smoked Alcohol intake: never Adopted: No Caregiver/support person: No Lives independently: Yes Marital status: Current occupational status: retired History of recent travel: No Current gender identity: Female Vitals/I&O/Wt Last Vital Signs Temp 97.7 F 09/01/20 10:53 Pulse 63 09/01/20 10:53 Resp 23 H 09/01/20 10:53 BP 139/72 09/01/20 10:53 Pulse Ox 96 09/01/20 10:53 08/31/20 09/01/20 09/01/20 22:59 06:59 14:59 Intake Total 100 / 100 828.75 / 928.75 410 / 410 Balance 100 / 100 828.75 / 928.75 410 / 410 Weight last 48 hrs Weight 155 lb Physical Exam Narrative: EXAM NARRATIVE: GENERAL: Averagely built and averagely nourished in no acute distress HEENT: Extraocular movement intact. Pupils equal round reactive to light. No pallor or icterus. NECK: central trachea, no JVD. No carotid bruit. CARDIOVASCULAR SYSTEM: S1-S2 regular. No S3 or S4 present. No murmur rubs or gallops. RESPIRATORY SYSTEM: Chest clear to auscultation. No wheezes rhonchi or rubs heard. No use of accessory muscles. ABDOMEN: Soft, nontender and nondistended. Normal bowel sounds present. EXTREMITIES: No cyanosis or clubbing. No edema. No signs of chronic venous insufficiency. FAMILY LAWYER: Patient is alert oriented ?3. No focal neurological deficits. SKIN: Normal turgor and temperature. No breakdown, rash or nail changes noted. PSYCH: Normal insight and judgment. No suicidal or homicidal ideations. A&P Assessment and plan (1) Tachycardia: History of tachycardia with heart rate reaching as high as 160s. There is no evidence of atrial fibrillation while in hospital. I do not have the EKG that actually documented A. fib. Her [id number] score is high. I will set her up for event monitor for 3 weeks for atrial fibrillation detection. -In the meantime continue her on aspirin. Echo with normal left ventricular ejection fraction and no thickened valvular abnormality. -Follow-up with me in office in 4 to 6 weeks. Status: Acute (2) HTN (hypertension): Status: Chronic Qualifiers: Hypertension type: essential hypertension Qualified Code(s): I10 - Essential (primary) hypertension (3) Hypothyroidism: Status: Chronic Qualifiers: Hypothyroidism type: unspecified Qualified Code(s): E03.9 - Hypothyroidism, unspecified (4) Diabetes: Status: Chronic Qualifiers: Diabetes mellitus longterm insulin use: without longterm use Diabetes mellitus type: type 2 Additional A&P Information H/O PVCs Gastroesophageal reflux disease History of irritable bowel syndrome H/o osteoporosis H/o polymyalgia rheumatica Anxiety Thank you for allowing me to participate in patient's care. Please feel free to call with questions or concerns. Coding Level of Care Code New Pt Acute Zipper Machine Operator for Chg Fwd Patient Type New Medical Decision Making Moderate Complexity Diagnoses Tachycardia R00.0 HTN (hypertension) I10 Hypertension type: essential hypertension Hypothyroidism E03.9 Hypothyroidism type: unspecified Diabetes E11.9 Diabetes mellitus ocean transportation intermediary insulin use: without ocean transportation intermediary use Diabetes mellitus type: type 2 Time Spent (min) 45
--- NOTE | 2020-09-01 13:49 | PM.DCS ---
Discharge Providers Date of Admission: 08/31/20 16:23 Date of Discharge: September 01, 2020 Attending Provider at Admission: Eben Pierce MD Attending Provider at Discharge: Eben Pierce MD Primary Care Provider: Inocente Kennedy MD Diagnoses at Discharge Discharge Diagnosis (1) Abnormality of heart beat: Status: Acute (2) MIHAI (acute kidney injury): Status: Resolved (3) HTN (hypertension): Status: Chronic (4) Diabetes: Status: Chronic (5) Hypothyroidism: Status: Chronic Reason for Visit Reason for Visit: sent from [facility]? Hospital Course Discharge Summary: 85-year-old female past medical history of hypertension , diabetes, hypothyroidism, recurrent UTI on prophylactic antibiotic, was admitted after experiencing an episode of racing of heart this morning, the episode lasted for about couple of minutes, at that time she felt, mild substernal chest, dizziness, nausea. She subsequently came to [facility], EKG done at [facility], was suggestive of possible A. fib with RVR with heart rate in 160S. We do not have any EKG from [facility]. She was worked up for abnormal heart rhythm. Telemetry monitoring was satisfactory, there was no A. fib on telemetry, heart rate was pretty well controlled ranging from 70-80/min, normal sinus rhythm. 2D echo was done: Failed to show any RWMA, EF: 65-70%, no gross valvular abnormality. TSH was 1.5. Cardiology was consulted cardiology is of the opinion that given her high risk factor, she will benefit from 14-day event monitor. Arrangements for which are being made. She is being discharged in stable condition to follow cardiology as an outpatient. Physical Exam Const: COMMON NORMALS: patient oriented x3 HENMT: COMMON NORMALS: normocephalic, atraumatic, hearing grossly normal bilaterally and external ears normal HEAD & SCALP: normocephalic and atraumatic EXTERNAL EAR: Yes external ears normal Eye: COMMON NORMALS: no scleral icterus GENERAL EYE: appearance normal, both eyes and all related structures Chest: COMMONS NORMALS: normal inspection of the chest and normal palpation of entire chest wall CHEST: Yes Symmetrical chest wall rise Resp: COMMON NORMALS: normal respiratory effort, No retractions, No use of accessory muscles and clear to auscultation bilaterally EFFORT & INSPECTION: Yes symmetric chest movement AUSCULTATION: clear to auscultation bilaterally Cardio: COMMON NORMALS: regular rate, regular rhythm, S1 normal heart sound present, S2 normal heart sound present, No gallops present (Cardio), No murmurs present (Cardio), No rub (Cardio) and Peripheral pulses 2+ throughout RATE: regular rate RHYTHM: regular rhythm HEART SOUNDS: S1 normal heart sound present and S2 normal heart sound present PERIPHERAL PULSES: Peripheral pulses 2+ throughout GI: COMMON NORMALS: Normal to inspection, nondistended, normoactive bowel sounds present, Soft to palpation, non-tender, No hepatosplenomegaly present and no masses AUSCULTATION: Yes normoactive bowel sounds PALPATION: Yes Soft to palpation and Yes No hepatosplenomegaly present RECTAL EXAM: deferred Extremity: COMMON NORMALS: no clubbing, cyanosis or edema and no pedal edema Neuro: COMMON NORMALS: patient oriented x3 Discharge Data Data Completed and Pending: Completed Studies During Hospitalization Category Date Time Status XR chest 1V priscila ble [id number] Stat Exams 08/31/20 13:25 Completed Pending at discharge Category Date Time Status Comprehensive Met abolic Panel AM LA BS Lab 09/02/20 04:00 Ordered Comprehensive Met abolic Panel AM LA BS Lab 09/03/20 04:00 Ordered Magnesium AM LABS Lab 09/02/20 04:00 Ordered Magnesium AM LABS Lab 09/03/20 04:00 Ordered Partial Thrombopl astin Time AM LABS Lab 09/02/20 04:00 Ordered Partial Thrombopl astin Time AM LABS Lab 09/03/20 04:00 Ordered Phosphorus AM LAB S Lab 09/02/20 04:00 Ordered Phosphorus AM LAB S Lab 09/03/20 04:00 Ordered Prothrombin Time INR AM LABS Lab 09/02/20 04:00 Ordered Prothrombin Time INR AM LABS Lab 09/03/20 04:00 Ordered CV echo complete* [id number] Routine Ultrasound 09/01/20 07:00 Taken Labs from last 24 hours 09/01/20 09/01/20 09/01/20 10:50 05:58 04:55 WBC RBC Hgb Hct MCV MCH MCHC RDW Plt Count MPV Neut % (Auto) Lymph % (Auto) [place] % (Auto) Eos % (Auto) Baso % (Auto) Neut # (Auto) Lymph # (Auto) [place] # (Auto) Eos # (Auto) Baso # (Auto) Nucleated RBC % (a uto) Nucleated RBCs # PT INR APTT Sodium Potassium Chloride Carbon Dioxide Anion Gap BUN Creatinine GFR Calculation Glucose POC Glucose 172 105 Calculated Osmolal ity Calcium Phosphorus 3.5 Magnesium 1.7 Total Bilirubin AST ALT Alkaline Phosphata se Troponin T Baselin e Troponin T 120 Min [place] Delta Troponin T Total Protein Albumin Globulin TSH 09/01/20 09/01/20 09/01/20 04:55 04:55 04:55 WBC 7.3 RBC 3.56 L Hgb 10.5 L Hct 33.3 L MCV 93.5 MCH 29.5 MCHC 31.5 RDW 13.2 Plt Count 159 MPV 12.2 H Neut % (Auto) 51.2 Lymph % (Auto) 37.2 [place] % (Auto) 7.4 Eos % (Auto) 3.1 Baso % (Auto) 0.7 Neut # (Auto) 3.75 Lymph # (Auto) 2.7 [place] # (Auto) 0.5 Eos # (Auto) 0.2 Baso # (Auto) 0.1 Nucleated RBC % (a uto) 0 Nucleated RBCs # 0.0 PT 15.70 H INR 1.21 H APTT 32.6 Sodium 140 Potassium 3.8 Chloride 108 H Carbon Dioxide 23 Anion Gap 12.8 BUN 22 Creatinine 1.2 H GFR Calculation Not Reportable Glucose 101 POC Glucose Calculated Osmolal ity 293 Calcium 9.5 Phosphorus Magnesium Total Bilirubin 0.6 AST 19 ALT 17 Alkaline Phosphata se 69 Troponin T Baselin e Troponin T 120 Min [place] Delta Troponin T Total Protein 6.1 L Albumin 3.6 Globulin 2.5 TSH 08/31/20 08/31/20 08/31/20 20:16 15:30 15:30 WBC RBC Hgb Hct MCV MCH MCHC RDW Plt Count MPV Neut % (Auto) Lymph % (Auto) [place] % (Auto) Eos % (Auto) Baso % (Auto) Neut # (Auto) Lymph # (Auto) [place] # (Auto) Eos # (Auto) Baso # (Auto) Nucleated RBC % (a uto) Nucleated RBCs # PT INR APTT Sodium Potassium Chloride Carbon Dioxide Anion Gap BUN Creatinine GFR Calculation Glucose POC Glucose 229 Calculated Osmolal ity Calcium Phosphorus Magnesium Total Bilirubin AST ALT Alkaline Phosphata se Troponin T Baselin e Troponin T 120 Min [place] 45.84 H Delta Troponin T 4.84 Total Protein Albumin Globulin TSH Cancelled 10/19/20 10/19/20 13:30 13:30 WBC RBC Hgb Hct MCV MCH MCHC RDW Plt Count MPV Neut % (Auto) Lymph % (Auto) [place] % (Auto) Eos % (Auto) Baso % (Auto) Neut # (Auto) Lymph # (Auto) [place] # (Auto) Eos # (Auto) Baso # (Auto) Nucleated RBC % (a uto) Nucleated RBCs # PT INR APTT Sodium 141 Potassium 4.3 Chloride 106 Carbon Dioxide 22 Anion Gap 17.3 BUN 22 Creatinine 1.3 H GFR Calculation Not Reportable Glucose 127 H POC Glucose Calculated Osmolal ity 297 H Calcium 9.9 Phosphorus Magnesium Total Bilirubin 0.4 AST 23 ALT 22 Alkaline Phosphata se 96 Troponin T Baselin e 41 H Troponin T 120 Min [place] Delta Troponin T Total Protein 6.6 Albumin 4.3 Globulin 2.3 TSH 1.50 Vitals: Last Vital Signs Temp 97.7 F 09/01/20 10:53 Pulse 63 09/01/20 10:53 Resp 23 H 09/01/20 10:53 BP 139/72 09/01/20 10:53 Pulse Ox 96 09/01/20 10:53 Discharge Plan Discharge Patient Disposition: Home Condition: Stable Prescriptions: Continued hydrochlorothiazide 12.5 mg tablet 12.5 mg PO DAILY RF: 0 omeprazole 20 mg capsule,delayed release(DR/EC) 20 mg PO DAILY RF: 0 levothyroxine 112 mcg capsule 112 mcg PO DAILY RF: 0 alprazolam 0.5 mg tablet 0.5 mg PO TID PRN (Reason: unknown) RF: 0 aspirin 325 mg tablet 325 mg PO DAILY RF: 0 methenamine hippurate 1 gram tablet 1 gm PO BID Qty: 60 RF: 12 metoprolol succinate 50 mg tablet extended release 24 hr 50 mg PO DAILY RF: 0 Celexa 10 mg Tablet See Rx Instructions .ROUTE .COMPLEX RF: 0 tramadol 50 mg Tablet 50 mg PO QID PRN (Reason: Pain) RF: 0 diclofenac sodium 75 mg tablet,delayed release (DR/EC) 75 mg PO BID PRN (Reason: unknown) RF: 0 Flonase Allergy Relief 50 mcg/actuation [place],Suspension 1 spray INTRANASAL BID PRN (Reason: Allergy Symptoms) RF: 0 metformin 500 mg tablet extended release 24 hr 500 mg PO DAILY RF: 0 Vitamin D3 1 tab PO DAILY RF: 0 Other Ambulatory Orders: [place] cardiac event monitor (Routine) Timeframe: 1 Day Facility: [facility] - Location: Cardiac Diagnostic Laboratory Ordered By: Flower Majano Referrals: Flower Majano MD [Physician] - 6 Weeks Discharge Diet: Diabetic and Low Salt Discharge Activity: Resume usual activity Discharge Attestations Time Spent in Discharge Care*: greater than 30 min Specific Discharge Activities: Specific discharge activities: educating patient, educating and/or supporting family/caregiver, discussing with pcp/other providers, discussing with case picker/social workers/dc planners, documenting/other paperwork and evaluating patient/reviewing data Status at Discharge: Cognitive status at discharge: cognitively intact, Behavioral status at discharge: cooperative, Functional status at discharge: independent ambulation Overall status at discharge: patient is back to baseline Quality Metrics Clinical Quality Measures During this hospital stay, did patient experience: None Coding Level of Care Code Acute Telephone Sex Worker for Chg Fwd Diagnoses Abnormality of heart beat R00.9 MIHAI (acute kidney injury) N17.9 HTN (hypertension) I10 Diabetes E11.9 Hypothyroidism E03.9
--- NOTE | 2020-09-01 16:36 | PC.NURSE ---
Event monitor placed
--- NOTE | 2020-09-01 17:03 | PC.NURSE ---
Discharge to home Instructed pt to follow-up with her pcp and pin drafting machine operator as discussed. Discuss to pt on medication adherence as discussed with her doctor. Pt verbalizes understanding. Event Monitor placed at [facility] prior to discharge. Ushered pt via wheelchair. Vadim thomson as her transport.
== END 2020-09-01 15:30 | disposition home or self-care (01) ==
LOC: ER 13:23 → CSU 17:38
PROVIDERS: Family Medicine; Admitting Provider Internal Medicine; PCP Family Medicine; Visit Provider Internal Medicine
DX: R00.0 Tachycardia, unspecified (principal); N17.9 Acute kidney failure, unspecified; I10 Essential (primary) hypertension; E11.9 Type 2 diabetes mellitus without complications; E03.9 Hypothyroidism, unspecified; Z79.82 Long term (current) use of aspirin; Z79.84 Long term (current) use of oral hypoglycemic drugs
CPT/HCPCS: 12345; 36415; 36416; 71045; 80053; 82962; 83735; 84100; 84443; 84484; 85025; 85610; 85730; 93005; 93306; 96361; 96365; 96372; 99283; 99285; G0378; J0696; J1650; J1815; J7030

== ENCOUNTER 2020-09-18 09:36 | Outpatient (CLI) | payer MEDICARE, OTHER, SELFPAY ==
--- NOTE | 2020-09-18 09:41 | MM_ITS ---
WS: [id number] Right breast diagnostic digital mammogram, 09/18/2020 Clinical Data: RT BREAST CALCIFICATION Comparison: 01/09/2020, 12/31/2019, 12/10/2019, 09/25/2012, 11/01/2010, 09/04/2009, 03/02/2007. Findings: A biopsy clip is in the inferior medial aspect of the right breast. There are no calcifications in th e region of the clip. Anterior and slightly lateral to the biopsy clip are linear small calcification s which are unchanged. There are also other calcifications in the anterior aspect of the right breast . There are also calcifications in the [place] of the small vessels. There are no masses seen. MM/[place] [id number] Impression: 1. Biopsy clip in the lower medial aspect right breast with no calcifications a djacent. 2. Multiple areas of calcifications throughout the right breast unchanged. 3. Recommend return to annual screening mammograms. BIRADS: 2-Benign FOLLOW UP: See Report The CAD checkering machine operator was used.
== END 2020-09-18 09:37 | disposition home or self-care (01) ==
LOC: RADSHAW 09:40
PROVIDERS: PCP Family Medicine; Visit Provider Family Medicine
DX: R92.1 Mammographic calcification found on diagnostic imaging of breast (principal)
CPT/HCPCS: 77065

== ENCOUNTER → 2020-11-12 10:15 | Outpatient (BNVA) | payer MEDICARE, OTHER, SELFPAY | PROVIDERS: PCP Family Medicine; Visit Provider Urology | DX: N39.0 Urinary tract infection, site not specified (principal) | CPT/HCPCS: 81003 ==

== ENCOUNTER 2021-03-07 17:19 | Emergency (ER) | payer MEDICARE, OTHER, SELFPAY ==
[2021-03-07 17:37] VITALS: BP 141/72; PULSE 69; RESP 18; TEMP 36.4; O2SAT 100; BMI 23.9
--- NOTE | 2021-03-07 19:03 | XR_ITS ---
WS: [id number] RIGHT SHOULDER: 3 VIEW(S) TECHNIQUE: Internal and external rotation with Y view. HISTORY: fall COMPARISON: None available. Acute fracture involving the RIGHT humeral head. Fracture is impacted with mild lateral displacement of the humeral diaphysis. Avulsion of the greater tuberosity. Moderate AC joint narrowing. Linear scar in the RIGHT upper lung. XR/XR shoulder RT min 2V* [id number] IMPRESSION: Minimally comminuted, impacted RIGHT humeral head fracture with avulsion of the greater tuberosity.
[2021-03-07 19:18] VITALS: RESP 22; O2SAT 99
[2021-03-07] MEDS: ondansetron 4 MG Tablet PO (19:18)
[2021-03-07] MEDS: HYDROmorphone 1 mg/mL INJ 1 mL IM (19:18)
[2021-03-07 20:39] VITALS: BP 136/74; PULSE 80; RESP 18; O2SAT 98
--- NOTE | 2021-03-08 02:11 | ED_ITS ---
HPI - Fall General: Chief Complaint: Fall Stated Complaint: fall, injury to r arm Time Seen by Provider: 03/07/21 18:46 History of Present Illness: HPI Narrative: 86-year-old lady who tripped and fell on her right shoulder and a bit on her face today. She complains of shoulder pain. She has an abrasion to the face. She is having trouble moving her arm. complaint: fall Onset (ago): hour(s) Fall from: standing Fall witnessed: yes, by family Loss of consciousness: None Prolonged down time: no Symptoms prior to fall: none Context: tripped/slipped Location of injury: face Location of injury - extremities: Right: shoulder Severity scale (1-10): 8 Quality: aching Associated symptoms-after fall: Denies abdominal pain, chest pain, confusion, headache(s), short of breath or weakness Review of Systems Const: Denies: fever(s) Eyes: Denies: change in vision Card: Denies: chest pain Resp: Denies: dyspnea, productive cough or non-productive cough GI: Denies: abdominal pain Neuro: Denies: headache(s) or confusion PFSH ED PFSH: Medical History (Updated 03/07/21 @ 19:41 by James Jean DO) Abnormality of heart beat MIHAI (acute kidney injury) Diabetes HTN (hypertension) HTN (hypertension) Hypothyroidism Recurrent UTI Urgency incontinence Surgical History H/O: knee surgery History of back surgery Family History Sister Cancer Mother Cancer stomach Father Accident Social History Smoking and tobacco status: never smoked Alcohol intake: never Adopted: No Caregiver/support person: No Lives independently: Yes Marital status: / Current occupational status: retired History of recent travel: No Current gender identity: Female Physical Exam Const: COMMON NORMALS: patient oriented x3 and alert Neck/C-Spine: CERVICAL SPINE: No Cervical spine tenderness Resp: COMMON NORMALS: normal respiratory effort, No use of accessory muscles and clear to auscultation bilaterally AUSCULTATION: clear to auscultation bilaterally Cardio: COMMON NORMALS: regular rate and regular rhythm RATE: regular rate RHYTHM: regular rhythm Extremity: NARRATIVE EXTREMITY EXAM: Exam of the right upper extremity reveals tenderness at the shoulder, in particular the proximal humerus. There is minimal clavicle tenderness. There is no elbow tenderness. No tenderness distally. Wrist extension is intact. Sensation is intact no deformity associated with dislocation. Neuro: COMMON NORMALS: patient oriented x3 SENSORIUM/ORIENTATION: Yes alert Skin: NARRATIVE SKIN EXAM: Abrasion with small skin avulsion to the right cheek. Course Vital Signs: Vital signs: Vital Signs Temperature 97.6 F 03/07/21 17:37 Pulse Rate 80 03/07/21 20:39 Respiratory Rate 18 03/07/21 20:39 Blood Pressure 136/74 03/07/21 20:39 Pulse Oximetry 98 03/07/21 20:39 MDM - Fall MDM Narrative: Medical decision making narrative: Proximal humerus fracture through the anatomical neck. Mild displacement. She will be placed in a shoulder immobilizer. Orthopedic follow-up Discharge Plan Discharge Patient Disposition: Home Clinical Impression: Fracture, humerus closed Qualifiers: Encounter type: initial encounter Humerus Location: surgical neck Fracture morphology: 3-part Laterality: right Qualified Code(s): S42.231A - 3-part fracture of surgical neck of right humerus, initial encounter for closed fracture Condition: Stable Prescriptions: New Percocet 7.5-325 mg tablet 0.5 - 1 tab PO Q6H PRN (Reason: pain) Qty: 15 RF: 0 No Action hydrochlorothiazide 12.5 mg tablet 12.5 mg PO DAILY RF: 0 omeprazole 20 mg capsule,delayed release(DR/EC) 20 mg PO DAILY RF: 0 alprazolam 0.5 mg tablet 0.5 mg PO TID PRN (Reason: unknown) RF: 0 aspirin 325 mg tablet 325 mg PO DAILY RF: 0 levothyroxine 112 mcg capsule 112 mcg PO DAILY RF: 0 valsartan 320 mg tablet 160 mg PO DAILY RF: 0 metoprolol succinate 50 mg tablet extended release 24 hr 50 mg PO DAILY RF: 0 Celexa 10 mg Tablet See Rx Instructions .ROUTE .COMPLEX RF: 0 tramadol 50 mg Tablet 50 mg PO QID PRN (Reason: Pain) RF: 0 diclofenac sodium 75 mg tablet,delayed release (DR/EC) 75 mg PO BID PRN (Reason: unknown) RF: 0 Flonase Allergy Relief 50 mcg/actuation [place],Suspension 1 spray INTRANASAL BID PRN (Reason: Allergy Symptoms) RF: 0 metformin 500 mg tablet extended release 24 hr 500 mg PO DAILY RF: 0 methenamine hippurate 1 gram Tablet 1 g PO BID RF: 0 Discharge Orders: Discharge ED (Routine); Ordered 03/07/21 Ordered By: James Jean Referrals: Ken Gerardo DO [Physician] - 4-7 days Inocente Kennedy MD [Primary Care Provider] - Patient Instructions: Arm Fracture in Adults (ED), Opioid Safety Activity Restrictions/Additional Instructions: Stay in shoulder immobilizer until seen by orthopedics. A referral has been placed for you. You may call on your own tomorrow and make an appointment, otherwise case management will do it for you and call you with your time and date. Pain medication as directed. Ice frequently for pain as well. Coding Level of Care Code ED Railroad Signal Operator for Laura Martinez
--- NOTE | 2021-03-08 09:26 | DCPLANNER ---
ed manager had message to schedule a follow up appointment with ortho for right prox humerus fracture. ed manager called the ortho clinic, spoke with Azalea, gave clinic patients information. ed manager was told that patients information would be printed and reviewed. Clinic will call patient with appointment information.
--- NOTE | 2021-03-09 08:11 | DCPLANNER ---
Patient has a follow up appointment scheduled for , March 11, 2021 at 9:[address] Gerardo at [facility]. Clinic will call patient with appointment information.
--- NOTE | 2021-05-19 07:57 | DCPLANNER ---
Patient had a follow up appointment scheduled for 03.11.[address] Gerardo at [facility] - patient did attend appointment.
== END 2021-03-07 20:30 | disposition home or self-care (01) ==
PROVIDERS: Emergency Provider Emergency Medicine; PCP Family Medicine
DX: S42.231A 3-part fracture of surgical neck of right humerus, initial encounter for closed fracture (principal); Z79.82 Long term (current) use of aspirin; E11.9 Type 2 diabetes mellitus without complications; I10 Essential (primary) hypertension; W01.0XXA Fall on same level from slipping, tripping and stumbling without subsequent striking against object, initial encounter
CPT/HCPCS: 29240; 73030; 96372; 99283; J1170; Q0162

== ENCOUNTER → 2021-03-25 15:18 | Outpatient (BNVA) | payer MEDICARE, OTHER, SELFPAY | PROVIDERS: PCP Family Medicine; Visit Provider Orthopaedic Surgery | DX: S42.231A 3-part fracture of surgical neck of right humerus, initial encounter for closed fracture (principal); X58.XXXA Exposure to other specified factors, initial encounter | CPT/HCPCS: 73030 ==

== ENCOUNTER → 2021-04-22 15:08 | Outpatient (BNVA) | payer MEDICARE, OTHER, SELFPAY | PROVIDERS: PCP Family Medicine; Visit Provider Orthopaedic Surgery | DX: S42.231A 3-part fracture of surgical neck of right humerus, initial encounter for closed fracture (principal); X58.XXXA Exposure to other specified factors, initial encounter | CPT/HCPCS: 73030 ==

== ENCOUNTER → 2021-05-13 10:48 | Outpatient (BNVA) | payer MEDICARE, OTHER, SELFPAY | PROVIDERS: PCP Family Medicine; Visit Provider Urology | DX: N39.0 Urinary tract infection, site not specified (principal); N39.41 Urge incontinence | CPT/HCPCS: 81003; 87086 ==

== ENCOUNTER → 2021-05-31 15:23 | Outpatient (BNVA) | payer MEDICARE, OTHER, SELFPAY | PROVIDERS: PCP Family Medicine; Visit Provider Nurse Practitioner Family | DX: N39.0 Urinary tract infection, site not specified (principal) | CPT/HCPCS: 81003 ==

== ENCOUNTER → 2021-06-03 14:52 | Outpatient (BNVA) | payer MEDICARE, OTHER, SELFPAY | PROVIDERS: PCP Family Medicine; Visit Provider Orthopaedic Surgery | DX: S42.231A 3-part fracture of surgical neck of right humerus, initial encounter for closed fracture (principal); S49.90XA Unspecified injury of shoulder and upper arm, unspecified arm, initial encounter | CPT/HCPCS: 73030 ==

== ENCOUNTER 2022-06-07 07:39 | Oncology outpatient (recurring) (ONCR) | payer MEDICARE, OTHER, SELFPAY ==
[2022-06-07 10:14] LABS: Basophils # 0.1 10^3/uL (0.0-0.1); Eosinophils # 0.1 10^3/uL (0.0-0.8); Eosinophils % 2.1 %; Hematocrit 37.2 % (37.0-47.0); Hemoglobin 11.7 g/dL (11.5-15.3); Mean Corpuscular HGB Conc 31.5 g/dL (30.0-36.0); Mean Corpuscular Hemoglobin 29.6 pg (28.0-34.0); Mean Corpuscular Volume 94.2 fl (81-99); Mean Platelet Volume 12.5 fL (7.4-10.4); Monocytes # 0.4 10^3/uL (0.2-0.9); Monocytes % 6.9 %; Neutrophils # 3.24 10^3/uL (1.8-7.7); Neutrophils % 55.7 %; Nucleated Red Blood Cells % 0 %; Platelet Count 98 10^3/cmm (130-400); Red Blood Count 3.95 10^6/uL (4.1-5.3); Red Cell Distribution Width 12.9 % (12.1-15.1); Reticulocyte % 1.1 % (0.5-2.0); White Blood Count 5.8 10^3/uL (4.0-10.0)
[2022-06-07 10:39] LABS: LAB Peripheral Smear Sent for Review
[2022-06-07 11:05] LABS: Alanine Aminotransferase 15 U/L (0-33); Albumin Level 4.5 g/dL (3.5-5.2); Alkaline Phosphatase 66 IU/L (35-105); Anion Gap 13.1 (5-19); Aspartate Amino Transferase 20 U/L (0-32); Blood Urea Nitrogen 26 mg/dL (8-23); Calcium 9.4 mg/dL (8.5-10.5); Carbon Dioxide 25 mmol/L (22-29); Chloride 106 mmol/L (98-107); Ferritin 92 ng/mL (15-150); Globulin 2.5 g/dL (1.3-4.6); Glucose 115 mg/dL (65-115); Iron 66 ug/dL (37-145); Lactate Dehydrogenase 186 U/L (135-214); Osmolality Calculated 296 mOsm/kg (285-295); Percent Saturation 25.6 % (20-50); Potassium 4.1 mmol/L (3.5-5.1); Sodium 140 mmol/L (136-145); Total Bilirubin 0.6 mg/dL (0.15-1.2); Total Iron Binding Capacity 257 mcg/dl; Unsaturated Iron Binding 191 ug/dL (112-347); Vitamin B12 485 pg/mL (232-1245)
[2022-06-07 11:11] LABS: Folate Level 14.9 ng/mL (4.8-37.3)
[2022-06-08 13:43] LABS: ABNORMAL PROTEIN BAND 1 0.2 g/dL (NONE DETECTED); ALBUMIN 4.4 g/dL (3.8-4.8); ALPHA 1 GLOBULIN 0.3 g/dL (0.2-0.3); ALPHA 2 GLOBULIN 0.6 g/dL (0.5-0.9); BETA 1 GLOBULIN 0.4 g/dL (0.4-0.6); BETA 2 GLOBULIN 0.3 g/dL (0.2-0.5)
[2022-06-08 16:24] LABS: KAPPA LIGHT CHAIN, FREE, SERUM 67.2 mg/L (3.3-19.4); KAPPA/LAMBDA LIGHT CHAINS FREE 2.93 (0.26-1.65); LAMBDA LIGHT CHAIN, FREE, SERU 22.9 mg/L (5.7-26.3)
== END 2022-06-07 23:59 | disposition home or self-care (01) ==
PROVIDERS: PCP Family Medicine; Visit Provider Internal Medicine Medical Oncology
DX: D69.6 Thrombocytopenia, unspecified (principal); D64.9 Anemia, unspecified
CPT/HCPCS: 80053; 82607; 82728; 82746; 83010; 83540; 83550; 83615; 83883; 84155; 84165; 85025; 85045; 99204

== ENCOUNTER 2022-09-15 08:19 | Oncology outpatient (recurring) (ONCR) | payer MEDICARE, OTHER, SELFPAY ==
[2022-09-13 11:36] LABS: Basophils # 0.1 10^3/uL (0.0-0.1); Eosinophils # 0.1 10^3/uL (0.0-0.8); Hematocrit 38.2 % (37.0-47.0); Hemoglobin 12.4 g/dL (11.5-15.3); Lymphocytes % 33.4 %; Mean Corpuscular HGB Conc 32.5 g/dL (30.0-36.0); Mean Corpuscular Hemoglobin 30.5 pg (28.0-34.0); Mean Corpuscular Volume 93.9 fl (81-99); Mean Platelet Volume 11.9 fL (7.4-10.4); Monocytes # 0.3 10^3/uL (0.2-0.9); Monocytes % 5.6 %; Neutrophils # 3.41 10^3/uL (1.8-7.7); Neutrophils % 57.7 %; Nucleated Red Blood Cells % 0 %; Platelet Count 101 10^3/cmm (130-400); Red Blood Count 4.07 10^6/uL (4.1-5.3); Red Cell Distribution Width 13.2 % (12.1-15.1); White Blood Count 5.9 10^3/uL (4.0-10.0)
[2022-09-13 11:37] LABS: Erythrocyte Sedimentation Rate 3 mm/hr (0-15)
[2022-09-13 11:55] LABS: Alanine Aminotransferase 17 U/L (0-33); Albumin Level 4.6 g/dL (3.5-5.2); Alkaline Phosphatase 74 U/L (35-105); Anion Gap 16.3 (5-19); Aspartate Amino Transferase 23 U/L (0-32); Blood Urea Nitrogen 21 mg/dL (8-23); Calcium 9.7 mg/dL (8.5-10.5); Carbon Dioxide 25 mmol/L (22-29); Chloride 103 mmol/L (98-107); Globulin 2.8 g/dL (1.3-4.6); Glucose 120 mg/dL (65-115); Immunoglobulin IGA 168 mg/dL (70-400); Immunoglobulin IGG 1182 mg/dL (700-1600); Immunoglobulin IGM 25 mg/dL (40-230); Osmolality Calculated 294 mOsm/kg (285-295); Potassium 4.3 mmol/L (3.5-5.1); Sodium 140 mmol/L (136-145); Total Bilirubin 0.9 mg/dL (0.15-1.2); Total Protein 7.4 g/dL (6.6-8.7)
[2022-09-14 11:17] LABS: PROTEIN, TOTAL 7.1 g/dL (6.1-8.1)
[2022-09-14 13:02] LABS: KAPPA LIGHT CHAIN, FREE, SERUM 66.7 mg/L (3.3-19.4); KAPPA/LAMBDA LIGHT CHAINS FREE 3.05 (0.26-1.65); LAMBDA LIGHT CHAIN, FREE, SERU 21.9 mg/L (5.7-26.3)
[2022-09-14 16:03] LABS: ABNORMAL PROTEIN BAND 1 0.4 g/dL (NONE DETECTED); ALBUMIN 4.4 g/dL (3.8-4.8); ALPHA 1 GLOBULIN 0.3 g/dL (0.2-0.3); ALPHA 2 GLOBULIN 0.7 g/dL (0.5-0.9); BETA 1 GLOBULIN 0.4 g/dL (0.4-0.6); BETA 2 GLOBULIN 0.3 g/dL (0.2-0.5); GAMMA GLOBULIN 1.1 g/dL (0.8-1.7)
[2022-09-16 17:46] LABS: PROTEIN, TOTAL, 24 HR UR 48 mg/24 h (<150); Protein/Creatinine Ratio 120 mg/g creat (<150)
[2022-09-19 16:02] LABS: ALBUMIN 100 %; ALPHA-1-GLOBULINS 0 %; ALPHA-2-GLOBULINS 0 %; BETA GLOBULINS 0 %; GAMMA GLOBULINS 0 %
== END 2022-10-12 23:59 | disposition home or self-care (01) ==
PROVIDERS: PCP Family Medicine; Visit Provider Internal Medicine Medical Oncology
DX: D64.9 Anemia, unspecified (principal); D69.6 Thrombocytopenia, unspecified; D47.2 Monoclonal gammopathy; R77.8 Other specified abnormalities of plasma proteins; N18.9 Chronic kidney disease, unspecified; I12.9 Hypertensive chronic kidney disease with stage 1 through stage 4 chronic kidney disease, or unspecified chronic kidney disease
CPT/HCPCS: 36415; 80053; 82570; 82784; 83883; 84155; 84165; 84166; 85025; 85651; 86334; 86335; 99214

== ENCOUNTER 2023-04-05 12:34 | Oncology outpatient (recurring) (ONCR) | payer MEDICARE, OTHER, SELFPAY ==
[2023-04-04 13:52] LABS: Basophils % 0.7 %; Eosinophils # 0.1 10^3/uL (0.0-0.8); Hematocrit 36.1 % (37.0-47.0); Hemoglobin 11.3 g/dL (11.5-15.3); Lymphocytes # 1.8 10^3/uL (0.8-4.8); Lymphocytes % 28.7 %; Mean Corpuscular HGB Conc 31.3 g/dL (30.0-36.0); Mean Corpuscular Hemoglobin 29.7 pg (28.0-34.0); Mean Corpuscular Volume 94.8 fl (81-99); Mean Platelet Volume 12.4 fL (7.4-10.4); Monocytes # 0.4 10^3/uL (0.2-0.9); Monocytes % 6.9 %; Neutrophils # 3.75 10^3/uL (1.8-7.7); Neutrophils % 61.4 %; Nucleated Red Blood Cells % 0 %; Platelet Count 107 10^3/cmm (130-400); Red Blood Count 3.81 10^6/uL (4.1-5.3); Red Cell Distribution Width 13.9 % (12.1-15.1); White Blood Count 6.1 10^3/uL (4.0-10.0)
[2023-04-04 14:10] LABS: Alanine Aminotransferase 16 U/L (0-33); Albumin Level 4.1 g/dL (3.5-5.2); Alkaline Phosphatase 67 U/L (35-105); Anion Gap 14.4 (5-19); Aspartate Amino Transferase 19 U/L (0-32); Blood Urea Nitrogen 25 mg/dL (8-23); Calcium 9.6 mg/dL (8.5-10.5); Carbon Dioxide 24 mmol/L (22-29); Chloride 105 mmol/L (98-107); Globulin 2.5 g/dL (1.3-4.6); Glucose 113 mg/dL (65-115); Immunoglobulin IGA 138 mg/dL (70-400); Immunoglobulin IGG 1022 mg/dL (700-1600); Osmolality Calculated 293 mOsm/kg (285-295); Potassium 4.4 mmol/L (3.5-5.1); Sodium 139 mmol/L (136-145); Total Bilirubin 0.6 mg/dL (0.15-1.2); Total Protein 6.6 g/dL (6.6-8.7)
[2023-04-04 14:22] LABS: Erythrocyte Sedimentation Rate 2 mm/hr (0-15); Immunoglobulin IGM 16 mg/dL (40-230)
[2023-04-05 12:09] LABS: PROTEIN, TOTAL 6.6 g/dL (6.1-8.1)
[2023-04-05 12:24] LABS: KAPPA LIGHT CHAIN, FREE, SERUM 54.1 mg/L (3.3-19.4); KAPPA/LAMBDA LIGHT CHAINS FREE 2.89 (0.26-1.65); LAMBDA LIGHT CHAIN, FREE, SERU 18.7 mg/L (5.7-26.3)
[2023-04-05 15:51] LABS: Iron 40 ug/dL (37-145); Total Iron Binding Capacity 266 mcg/dl; Unsaturated Iron Binding 226 ug/dL (112-347)
[2023-04-05 16:59] LABS: ABNORMAL PROTEIN BAND 1 0.2 g/dL (NONE DETECTED); ALPHA 1 GLOBULIN 0.3 g/dL (0.2-0.3); ALPHA 2 GLOBULIN 0.6 g/dL (0.5-0.9); BETA 1 GLOBULIN 0.4 g/dL (0.4-0.6); BETA 2 GLOBULIN 0.3 g/dL (0.2-0.5)
[2023-04-06 11:02] LABS: Lactate Dehydrogenase 185 U/L (135-214)
[2023-04-06 11:18] LABS: Reticulocyte % 1.6 % (0.5-2.0)
== END 2023-04-12 23:59 | disposition home or self-care (01) ==
PROVIDERS: Nurse Practitioner Family; PCP Family Medicine; Visit Provider Internal Medicine Medical Oncology
DX: D47.2 Monoclonal gammopathy (principal); D69.6 Thrombocytopenia, unspecified; D64.9 Anemia, unspecified; Z79.899 Other long term (current) drug therapy
CPT/HCPCS: 36415; 80053; 82784; 83010; 83540; 83550; 83615; 83883; 84155; 84156; 84165; 84166; 85025; 85045; 85651; 99214

== ENCOUNTER → 2023-04-06 10:45 | Outpatient (BNVA) | payer MEDICARE, OTHER, SELFPAY | PROVIDERS: PCP Family Medicine; Referring Provider Family Medicine; Visit Provider Dermatology | DX: C44.319 Basal cell carcinoma of skin of other parts of face (principal); L82.0 Inflamed seborrheic keratosis; L57.0 Actinic keratosis; L81.4 Other melanin hyperpigmentation; L82.1 Other seborrheic keratosis | CPT/HCPCS: 11102; 17000; 17110; 99203 ==

== ENCOUNTER → 2023-05-01 12:52 | Outpatient (BNVA) | payer MEDICARE, OTHER, SELFPAY | PROVIDERS: PCP Family Medicine; Visit Provider Dermatology | DX: C44.319 Basal cell carcinoma of skin of other parts of face (principal) | CPT/HCPCS: 13132; 17311; 17312 ==

== ENCOUNTER 2024-06-20 12:02 | Emergency (ER) | payer MEDICARE, OTHER, SELFPAY ==
[2024-06-20 12:29] VITALS: BP 178/87; PULSE 82; RESP 26; TEMP 36.5; O2SAT 98; BMI 24.3
--- NOTE | 2024-06-20 12:44 | XRR_ITS ---
PROCEDURE INFORMATION: Exam: XR Right Shoulder Exam date and time: 06/20/2024 12:57 PM Age: 89 years old Clinical indication: Injury or trauma; Fall; Blunt trauma (contusions or hematomas); Shoulder; Right; Additional info: Fall, shoulder pain TECHNIQUE: Imaging protocol: Radiologic exam of the right shoulder. Views: 2 or more views. COMPARISON: CR XR shoulder RT min 2V* [id number] 06/03/2021 2:58 PM FINDINGS: Bones/joints: Nonacute impacted humeral neck fracture. Comminuted midclavicular fracture with overriding fragments. Soft tissues: Normal. XR/XR shoulder RT min 2V* [id number] IMPRESSION: 1. Nonacute impacted humeral neck fracture. 2. Comminuted midclavicular fracture with overriding fragments.
--- NOTE | 2024-06-20 12:44 | XRR_ITS ---
PROCEDURE INFORMATION: Exam: XR Right Clavicle, Complete Exam date and time: 06/20/2024 12:57 PM Age: 89 years old Clinical indication: Injury or trauma; Fall; Bleeding/hemorrhage; Shoulder; Right; Additional info: Fall, clavicular pain and bruising. TECHNIQUE: Imaging protocol: Radiologic exam of the right clavicle. Complete exam. Views: Any number of views. COMPARISON: CR XR shoulder RT min 2V* [id number] 06/20/2024 12:57 PM FINDINGS: Bones/joints: Comminuted mid clavicular fracture with slight overriding fragments. Nonacute impacted humeral neck fracture. Soft tissues: Normal. XR/[place] [id number] IMPRESSION: Comminuted mid clavicular fracture with slight overriding fragments.
--- NOTE | 2024-06-20 13:12 | W.ED.FALL ---
HPI - Fall General: Chief Complaint: Fall Stated Complaint: fell, R Shoulder pain Time Seen by Provider: 06/20/24 12:39 History of Present Illness: 89-year-old female with a history of anxiety, hypertension, diabetes and hyperlipidemia who presents to the emergency room after a fall today with right shoulder and clavicular pain. She has pain and bruising in her mid clavicular area. She also has pain in her proximal humerus area. Unable to move her arm because pain. She is neurovascularly intact. She did not hit her head. No neck pain. No chest pain. No anticoagulation. No altered mental status. No focal motor deficits. No nausea or vomiting. Review of Systems Narrative: Constitutional symptoms: Negative except as documented in HPI. Skin symptoms: Negative except as documented in HPI. Eye symptoms: Negative except as documented in HPI. ENMT symptoms: Negative except as documented in HPI. Respiratory symptoms: Negative except as documented in HPI. Cardiovascular symptoms: Negative except as documented in HPI. Gastrointestinal symptoms: Negative except as documented in HPI. Genitourinary symptoms: Negative except as documented in HPI. Musculoskeletal symptoms: Negative except as documented in HPI. Neurologic symptoms: Negative except as documented in HPI. Psychiatric symptoms: Negative except as documented in HPI. Endocrine symptoms: Negative except as documented in HPI. PFSH ED PFSH: Medical History Anxiety and depression Chronic kidney disease Degenerative arthritis GERD (gastroesophageal reflux disease) History of cardiac arrhythmia History of recurrent UTI (urinary tract infection) Hypertension Hypothyroidism Type 2 diabetes mellitus Surgical History H/O: knee surgery History of back surgery Family History Sister Cancer Mother Cancer stomach Father Accident Other Diabetes Hypertension Denies family history of CAD (coronary artery disease) Clotting disorder Dementia Hyperlipidemia Psychiatric illness Chronic kidney disease (CKD) Suicide Anesthesia complication Bleeding disorder Lung disease Stroke Social History Smoking and tobacco/nicotine status: never used tobacco/nicotine Alcohol intake: never Substance/Drug Use: unknown Adopted: No Caregiver/support person: No Lives independently: Yes Marital status: / Current occupational status: retired Current gender identity: Female Physical Exam Narrative: EXAM NARRATIVE: General: Alert, no acute distress. This is a very healthy-appearing 89-year-old female Skin: Warm, dry. Head: Normocephalic, atraumatic. Neck: Supple, trachea midline. Eye: Extraocular movements are intact. Ears, nose, mouth and throat: mucosa moist. Cardiovascular: Regular, Normal peripheral perfusion. Respiratory: Lungs are clear to auscultation, respirations are non-labored, breath sounds are equal, Symmetrical chest wall expansion. Gastrointestinal: Soft, Nontender, Non distended Musculoskeletal: Some mild deformity of the right proximal shoulder. Pain to palpation of the proximal shoulder. Also pain to palpation over the mid clavicular area with some bruising and some deformity. She is neurovascularly intact distal to these injuries. Neurological: Alert and oriented, No focal neurological deficit observed. Psychiatric: Cooperative, appropriate mood & affect. Course Vital Signs: Vital signs: Vital Signs Temperature 97.7 F 06/20/24 12:29 Pulse Rate 82 06/20/24 12:29 Respiratory Rate 26 H 06/20/24 12:29 Blood Pressure 178/87 06/20/24 12:29 Pulse Oximetry 98 06/20/24 12:29 Oxygen Delivery Me thod Room Air 06/20/24 12:29 MDM - Fall Medical Decision Making Medical decision making: Differential diagnosis including but not limited to and based on the above HPI, review of systems and physical exam: Concern for clavicular and proximal shoulder fractures or dislocations. X-rays were ordered to evaluate. Orders placed to evaluate differential diagnosis based on the above differential, HPI and physical exam X-rays of the right clavicle and shoulder show commuted mid clavicular fracture with slight overriding fragments. Also shows a nonacute impacted humeral neck fracture. This was reviewed and interpreted by myself the emergency room physician. I also reviewed the radiology report. I reviewed the patient's medical record. Reexamination: Patient remains neurovascular intact. She has quite a bit of pain in her shoulder. Patient remained stable. No increased work of breathing. No altered mental status. No focal motor deficits. Consultation: I spoke with Dr. Gerardo who is on-call for orthopedics. He recommends a sling and follow-up in clinic. He feels this will not be surgical. He did review the films. Assessment and plan: Proximal humerus fracture Clavicular fracture Fall -[place] in the emergency room ? Discharged home - Discussed plan with patient. Answered any questions. - Evaluation and treatment of this problem were appropriate in the emergency setting. Lab Data Radiology Impressions Clavicle X-Ray 06/20/24 12:44 IMPRESSION: Comminuted mid clavicular fracture with slight overriding fragments. Shoulder X-Ray 06/20/24 12:44 IMPRESSION: 1. Nonacute impacted humeral neck fracture. 2. Comminuted midclavicular fracture with overriding fragments. All radiology interpretation(s) finalized by discharge Discharge Plan Discharge Patient Disposition: Home Clinical Impression: Fracture of clavicle, right, closed Qualifiers: Encounter type: initial encounter Clavicle location: unspecified part of clavicle Fracture alignment: displaced Qualified Code(s): S42.001A - Fracture of unspecified part of right clavicle, initial encounter for closed fracture Fracture of proximal humerus Qualifiers: Encounter type: initial encounter Fracture type: closed Fracture morphology: unspecified fracture morphology Laterality: right Qualified Code(s): S42.201A - Unspecified fracture of upper end of right humerus, initial encounter for closed fracture Fall Qualifiers: Encounter type: initial encounter Qualified Code(s): W19.XXXA - Unspecified fall, initial encounter Condition: Stable Prescriptions: New hydrocodone-acetaminophen 5-325 mg tablet 1 tab PO Q6H PRN (Reason: pain) Qty: 20 0RF ondansetron 8 mg tablet,disintegrating 8 mg PO .q6 PRN (Reason: nausea and vomiting) Qty: 14 0RF Miralax 17 gram/dose powder 17 g PO DAILY Qty: 510 0RF Rx Instructions: Take 1 scoop daily while taking pain medications. No Action hydrochlorothiazide 12.5 mg tablet 12.5 mg PO DAILY Rx Instructions: pt states she takes care of her own medications-pt states she takes this medication-external med history shows last filled 07/21/2020 90d/s aspirin 325 mg tablet 325 mg PO DAILY Rx Instructions: pt states she takes care of her own medications-pt states she takes this medication omeprazole 20 mg capsule,delayed release(DR/EC) 20 mg PO BID Rx Instructions: pt states she takes this medication alprazolam 0.5 mg tablet 0.5 mg PO DAILY levothyroxine 125 mcg capsule 125 mcg PO DAILY metoprolol succinate 50 mg tablet extended release 24 hr 50 mg PO DAILY Rx Instructions: pt states she takes care of her own medications-pt states she takes this medication-external med history shows last filled 08/17/2020 metformin 500 mg tablet extended release 24 hr 500 mg PO DAILY Rx Instructions: pt states she takes care of her own medications-pt states she takes this medication-external med history shows last filled 07/21/2020 90d/s Discharge Orders: Discharge ED (Routine); Ordered 06/20/24 Ordered By: Sarah Cardona Referrals: Ken Gerardo DO [Physician] - 4-7 days (Please call for an appointment for follow-up ) Inocente Kennedy MD [Primary Care Provider] - Discharge Diet: Usual diet Discharge Activity: Limit activity as instructed Patient Instructions: Clavicle Fracture (ED), How to Use a Sling (ED), Proximal Humerus Fracture (ED), Opioid Safety, Pain Management Activity Restrictions/Additional Instructions: Thank you for choosing [facility] for your healthcare needs today. Please realize this is an emergency room and that we are providing you with a medical screening exam and this may not be complete and all inclusive of all the testing and or work up that you may need to determine your ailment or severity of your illness. You have been screened and evaluated and felt safe for discharge. Health conditions do change or evolve sometimes and as such it is important that you follow up with your Primary Doctor to be re checked, 3-5 days is a general good time frame for follow up. You are always welcome to return to the ED for re assessment if your symptoms are worsening or you have new concerns Coding Level of Care Code ED Truck Driver Flatbed for Laura Martinez
[2024-06-20] MEDS: HYDROcodone-acetaminophen 5-325 mg Tablet 1 TAB PO (14:55)
[2024-06-20 15:38] VITALS: BP 177/96; PULSE 85; RESP 16; TEMP 36.5; O2SAT 97
== END 2024-06-20 15:02 | disposition home or self-care (01) ==
PROVIDERS: Emergency Provider Emergency Medicine; PCP Family Medicine
DX: S42.001A Fracture of unspecified part of right clavicle, initial encounter for closed fracture (principal); S42.201A Unspecified fracture of upper end of right humerus, initial encounter for closed fracture; Z79.82 Long term (current) use of aspirin; Z79.84 Long term (current) use of oral hypoglycemic drugs; E11.22 Type 2 diabetes mellitus with diabetic chronic kidney disease; I12.9 Hypertensive chronic kidney disease with stage 1 through stage 4 chronic kidney disease, or unspecified chronic kidney disease; N18.9 Chronic kidney disease, unspecified; E78.5 Hyperlipidemia, unspecified; W19.XXXA Unspecified fall, initial encounter
CPT/HCPCS: 73000; 73030; 99283

== ENCOUNTER → 2024-06-27 14:39 | Outpatient (BNVA) | payer MEDICARE, OTHER, SELFPAY | PROVIDERS: PCP Family Medicine; Visit Provider Orthopaedic Surgery | DX: S42.001A Fracture of unspecified part of right clavicle, initial encounter for closed fracture (principal); X58.XXXA Exposure to other specified factors, initial encounter | CPT/HCPCS: 73000; 99213 ==

== ENCOUNTER → 2024-08-08 10:01 | Outpatient (BNVA) | payer MEDICARE, OTHER, SELFPAY | PROVIDERS: PCP Family Medicine; Visit Provider Orthopaedic Surgery | DX: S42.021D Displaced fracture of shaft of right clavicle, subsequent encounter for fracture with routine healing (principal); X58.XXXD Exposure to other specified factors, subsequent encounter | CPT/HCPCS: 73000; 99213 ==

== ENCOUNTER 2025-09-07 18:13 | Emergency (ER) | payer MEDICARE, OTHER, SELFPAY ==
[2025-09-07] VITALS (8 sets, daily range): BP systolic 163–215; BP diastolic 70–106; PULSE 61–77; RESP 14–25; TEMP 36.4; O2SAT 95–100; BMI 23.3
--- NOTE | 2025-09-07 18:17 | ECG_ITS ---
[facility] 2025-09-07 Pat Name: Stephanie Quinones Department: Room: Gender: Female Distribution Center Assistant: : 1935 Requested By: James Mcclain Order Number: [id number] Reading MD: Measurements Intervals [place] Rate: 67 P: 31 DC: 163 QRS: 28 QRSD: 82 T: 55 QT: 414 QTc: 438 Interpretive Statements SINUS RHYTHM WITH FREQUENT VENTRICULAR PREMATURE COMPLEXES ABNORMAL RHYTHM ECG No previous ECG available for comparison [email or web address]
--- NOTE | 2025-09-07 18:31 | XRR_ITS ---
PROCEDURE INFORMATION: Exam: XR Chest Exam date and time: 09/07/2025 6:37 PM Age: 89 years old Clinical indication: Pain; Chest pressure; Additional info: Cp TECHNIQUE: Imaging protocol: Radiologic exam of the chest. Views: 1 view. COMPARISON: CR XR chest 1V portable [id number] 08/31/2020 1:22 PM FINDINGS: Lungs: Unremarkable. No consolidation. Pleural spaces: Unremarkable. No pleural effusion. No pneumothorax. Heart/Mediastinum: Unremarkable. No cardiomegaly. Bones/joints: No acute findings. Old healed right clavicle fracture. Bilateral glenohumeral osteoarthritis. XR/XR chest 1V portable [id number] IMPRESSION: No acute findings.
--- OUTSIDE RECORDS SUMMARY | 2025-09-07 18:37 | XMS_ITS | Clinical Summary ---
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
--- OUTSIDE RECORDS SUMMARY | 2025-09-07 18:37 | XMS_ITS | Encounter Summary ---
Author Organization [facility] Address [address] [place] [address] Care Team Providers Care Paperboard Boxes Estimator Name Role Phone Unavailable Primary Care Provider Unavailabl e Encounter Details Date Type Department Care Team (Latest Contact Info) Description 01/01/2003 Outpatient Historical [facility] Rachael, Ken Bueno MD [address] [facility] [address] [place] [address] LUMP OR MASS IN BREAST (Primary Dx) Social History Tobacco Use Types Packs/Day Years Used Date Smoking Tobacco: Never Assessed Comments Unknown Sex and Gender Information Value Date Recorded Sex Assigned at Not on file Legal Sex Female 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
--- OUTSIDE RECORDS SUMMARY | 2025-09-07 18:38 | XMS_ITS | Data Portability ---
Author Organization [facility] [place] [facility], [facility] Address [address] [address] Care Team Providers Care Lacing String Cutter Name Role Phone RAMOS KENNEDY Primary Care Provider Unavailabl e Assessment No assessment recorded. Plan of Treatment Reminders Order Date Submit Date Provider Last Modified By Organization Details Last Modified Time Details Appointments RECHECK 15 2024 09:15A Homar Kennedy MD Not available Not available Not available Lab ferritin , serum or plasma 2024 025 [employer] [facility], [address] [place] [address] 248, [address] [place], [address], 07/09/2025 04:27:03 microalb umin, urine 2024 025 [email or web address] [facility] [place], [address], [address], [place], [address], 07/15/2025 12:31:16 microalb umin/cre atinine, mass ratio, urine 2024 025 [email or web address] [facility], [address] [facility] 248, [address], [place], [address], 07/09/2025 04:27:02 hemoglob in A1C/hemo globin total, QN, blood 2024 025 [place] [facility], [address] [facility], [facility] 1, [place], [address], 07/08/2025 11:37:31 CBC 2024 025 [place] [facility], [address] [facility], [address], [place], [address], 07/08/2025 11:44:29 CMP, serum or plasma 2024 025 [facility], [address] [place], [place] [address], [address], [place], [address], 07/08/2025 12:25:50 urinalys is, dipstick [address] ([facility]), [address] [place] [address], [address], 06/29/2025 13:06:51 culture, urine 2024 025 [employer] [facility], [address] [place] [address], [address] [place], [address], 07/01/2025 16:00:03 respirat ory pathogen s DNA and RNA panel, PCR, nasophar ynx [address] ([facility]), [address] [place] [address], [address], 06/29/2025 13:06:51 CBC 2024 025 [facility], [address] [place], [place] [address], [address], [place], [address], 03/05/2025 12:25:36 CMP, serum or plasma 2024 025 [facility], [address], [address], [place], [address], 03/05/2025 13:19:29 HbA1c (hemoglo bin A1c), blood 2024 025 [email or web address] [facility], [address], [address], [place], [address], 03/12/2025 14:07:15 lipid panel, serum [email or web address] [place] [address] Lab, [address] [facility], [address], [place], [address], 03/12/2025 14:07:15 TSH, serum or plasma [email or web address] [place], [place] [address]ek Lab, [address], [address], [place], [address], 03/12/2025 14:07:15 T4, free, serum 2024 025 [email or web address] [facility], [address], [address], [place], [address], 03/06/2025 06:40:52 vitamin D, 25-hydro xy, total, serum 2024 025 [email or web address] [facility], [address], [address], [place], [address], 03/06/2025 06:40:53 Referral None recorded . Procedures None recorded . Surgeries cryother apy (SURG) 2024 025 [email or web address] Not available 07/08/2025 11:34:00 Imaging None recorded . Medication Orders Blink Gel Tears 0.25 % eye drops 2024 025 [id number], [address], [address], [place], [address], 07/08/2025 11:04:05 cefdinir 300 mg capsule 2024 025 [facility], [address], [place], [address], 07/08/2025 12:42:52 alprazol am 0.5 mg tablet 2024 025 [id number], [address], [address], [place], [address], 03/05/2025 11:43:18 azithrom ycin 250 mg tablet 2024 025 [id number], [address], [address], [place], [address], 03/05/2025 11:05:06 benzonat ate 200 mg capsule 2024 [id number], [address], [facility], [place], [address], 03/05/2025 11:06:47 Augmenti n 875 mg-125 mg tablet [email or web address] [place] [address] [facility][id number], [address], [place], [place], [id number], 03/05/2025 11:04:57 Patient TargetsNo targets recorded. Patient Instructions Encounter Date Encounter Id Patient Instructions Last Modified By Organization Details Last Modified Time 03/05/2025 [id number] back pain: care instructions [email or web address] Not available 03/05/2025 11:43:14 Reason for Referral None Reported. Results Created Date Observation Date Name Description Value Unit Range Abnormal Flag Note LastModifiedBy Organization Detail LastModifiedTime 07/01/2007/01/2025 CULTU RE, URINE , ROUTI NE culture, urine, routine SEE NOTE CULTU RE, URINE , ROUTI NE Micro Numbe r: [id number] Test Statu s: Final Speci men Sourc e: Urine Speci men Quali ty: Adequ ate Resul t: Mixed genit al zenaida isola marilee. These super ficia l bacte rashi are not indic ative of a urina ry tract infec tion. No furth er organ ism ident ifica tion is warra nted on this speci men. If clini derrell indic ated, recol lect clean -catc h, mid-s tream urine and trans macho immed iatel y to Urine Cultu re Trans port Tube. Comme nt: No colle ction date was provi ded. The speci men is gener ally defin ed as stabl e up to 48 hours . The resul t(s) need( s) to be inter prete d cauti ously . Clini copat holog ic corre latio n is requi red. Repea t testi ng is recom karen d as clini derrell indic ated. Custo mike Servi ce is avail able with quest ions or comme nts based on your area of inter est: [phone] ANGELA T ([phone]) NO COLLE CTION DATE RECEI TAI. WE HAVE USED THE DATE THE SPECI MEN WAS RECEI TAI BY THIS LABOR ATORY THE COLLE CTION DATE. IF THIS IS INCOR RECT, PLEAS E CONTA CT CLIEN T SERVI BENITA. PHONE NUMBE R: [phone] Not Available [employer] [address] [place], [address], 07/01/2025 16:00:03 03/05/20 25 03/05/2025 CBC WBC 5.4 x10 4.0-10 .5 Not Available [facility] [address] [facility] 1, [place], [address], 03/05/2025 12:25:35 03/05/20 25 03/05/2025 CBC RBC 3.79 x10 3.50-5 .50 Not Available [facility] [address] [facility] [address], [place], [address], 03/05/2025 12:25:35 03/05/20 25 03/05/2025 CBC HGB 10.8 g/dL 12.0-1 6.0 low Not Available [facility] [address] [facility] 1, [place], [address], 03/05/2025 12:25:35 03/05/20 25 03/05/2025 CBC HCT 33.2 % 37.0-4 7.0 low Not Available [facility] [address] [facility] 1, [place], [address], 03/05/2025 12:25:35 03/05/20 25 03/05/2025 CBC MCV 87.6 fL 80.0-9 9.9 Not Available [facility] [address] [facility] [address] [facility] 1, [place], [address], 03/05/2025 12:25:35 03/05/20 25 03/05/2025 CBC MCH 28.4 pg 27.0-3 2.0 Not Available [facility] [address] [facility] [address] [facility] 1, [place], [address], 03/05/2025 12:25:35 03/05/20 25 03/05/2025 CBC MCHC 32.4 g/dL 32.0-3 6.0 Not Available [facility] [place] [address] [facility] [address] [facility] 1, [place], [address], 03/05/2025 12:25:35 03/05/20 25 03/05/2025 CBC RDW 14.5 % 11.5-1 4.5 Not Available [facility] [address] [facility] [address] [facility] 1, [place], [address], 03/05/2025 12:25:35 03/05/20 25 03/05/2025 CBC plt 108.9 x10 140.0- 451.0 low Not Available [facility] [address] [facility] [address] 1, [place], [address], 03/05/2025 12:25:35 03/05/20 25 03/05/2025 CBC lymphocytes % 29.6 % 20.0-5 0.0 Not Available [facility] [address] [facility] [address] [facility] 1, [place], [address], 03/05/2025 12:25:35 03/05/20 25 03/05/2025 CBC granulcytes % 61.5 % 30.0-7 0.0 Not Available [facility] [address] [facility] 1, [place], [address], 03/05/2025 12:25:35 03/05/20 25 03/05/2025 CBC monocytes % 7.5 % 2.0-16 .0 Not Available [facility] [address] [address], [place], [address], 03/05/2025 12:25:35 03/05/20 25 03/05/2025 CBC granulcytes# 3.3 x10 Not Danielle ilable [facility] [address] [address], [place], [address], 03/05/2025 12:25:35 03/05/20 25 03/05/2025 CBC lymphocytes # 1.6 x10 Not Available [facility] [address] [address], [place], [address], 03/05/2025 12:25:35 03/05/20 25 03/05/2025 CBC monocytes # 0.4 x10 Not Avai lable [facility] [address] [address], [place], [address], 03/05/2025 12:25:35 03/05/20 25 03/05/2025 TSH TSH 0.09 uIU/m L 0.49-3 .82 low Not Available [facility] [address] [facility] [address] [facility], [place], [address], 03/05/2025 12:53:25 03/05/20 25 03/05/2025 CMP (FEMA LE) glucose 152.0 mg/dL 60.0-9 9.0 high Not Available [facility] [address] [facility] 1, [place], [address], 03/05/2025 13:19:29 03/05/20 25 03/05/2025 CMP (FEMA LE) BUN (blood urea nitrogen) 25.0 mg/dL 10.0-2 6.0 Not Available [facility] [address] [facility] 1, [place], [address], 03/05/2025 13:19:29 03/05/20 25 03/05/2025 CMP (FEMA LE) creatinine (serum) 1.2 mg/dL 0.4-1. 5 Not Available [facility] [address] [facility] 1, [place], [address], 03/05/2025 13:19:29 03/05/20 25 03/05/2025 CMP (FEMA LE) BUN/creatini ne ratio 20.83 ratio Not Available [facility] [address] [address], [place], [address], 03/05/2025 13:19:29 03/05/20 25 03/05/2025 CMP (FEMA LE) eGFR calculated 45.0 Not Available [facility] [address] [address], [place], [address], 03/05/2025 13:19:29 03/05/20 25 03/05/2025 CMP (FEMA LE) total protein 7.7 g/dL 6.0-8. 5 Not Available [facility] [address] [address], [place], [address], 03/05/2025 13:19:29 03/05/20 25 03/05/2025 CMP (FEMA LE) total bilirubin 1.0 mg/dL 0.2-1. 3 Not Available [facility] [address] [address], [place], [address], 03/05/2025 13:19:29 03/05/20 25 03/05/2025 CMP (FEMA LE) albumin 4.5 g/dL 3.5-5. 5 Not Available [facility] [address] [facility] [address] [facility] 1, [place], [address], 03/05/2025 13:19:29 03/05/20 25 03/05/2025 CMP (FEMA LE) globulin 3.2 calc Not Available [facility] [address] [facility] 1, [place], [address], 03/05/2025 13:19:29 03/05/20 25 03/05/2025 CMP (FEMA LE) AST (SGOT) 35.0 U/L 0.0-46 .0 Not Available [facility] [address] [facility] 1, [place], [address], 03/05/2025 13:19:29 03/05/20 25 03/05/2025 CMP (FEMA LE) altv (SGPT) 27.0 U/L 13.0-6 9.0 normal Not Available [facility] [address] [facility] 1, [place], [address], 03/05/2025 13:19:29 03/05/20 25 03/05/2025 CMP (FEMA LE) A/G ratio 1.4 ratio Not Available [facility] [address] [facility] 1, [place], [address], 03/05/2025 13:19:29 03/05/20 25 03/05/2025 CMP (FEMA LE) ALP phos 81.0 U/L 30.0-1 40.0 normal Not Available [facility] [address] [facility] 1, [place], [address], 03/05/2025 13:19:29 03/05/20 25 03/05/2025 CMP (FEMA LE) calcium 9.5 mg/dL 8.4-10 .5 Not Available [facility] [place] [address] [facility] 1, [place], [address], 03/05/2025 13:19:29 03/05/20 25 03/05/2025 CMP (FEMA LE) sodium 141.0 mmol/ L 136.0- 145.0 Not Available [facility] [address] [facility] 1, [place], [address], 03/05/2025 13:19:29 03/05/20 25 03/05/2025 CMP (FEMA LE) potassium 4.2 mmol/ L 3.5-5. 1 Not Available [facility] [address] [facility] 1, [place], [address], 03/05/2025 13:19:29 03/05/20 25 03/05/2025 CMP (FEMA LE) chloride 108.0 mmol/ L 98.0-1 10.0 normal Not Available [facility] [address] [facility] 1, [place], [address], 03/05/2025 13:19:29 03/05/20 25 03/05/2025 CMP (FEMA LE) C02 23.0 mmol/ L 22.0-3 1.0 Not Available [facility] [address] [facility] 1, [place], [address], 03/05/2025 13:19:29 03/05/20 25 03/05/2025 CMP (FEMA LE) anion gap 10.[address] [facility] [address] [facility] 1, [place], [address], 03/05/2025 13:19:29 03/05/20 25 03/05/2025 CMP (FEMA LE) osmolality 297.9 calc Not Available [facility] [address] [facility] 1, [place], [address], 03/05/2025 13:19:29 03/05/20 25 03/05/2025 LIPID PROFI LE (FEMA LE) cholesterol 182.0 mg/dL 0.0-20 0.0 Not Available [facility] [address] [facility] 1, [place], [address], 03/05/2025 13:19:32 03/05/20 25 03/05/2025 LIPID PROFI LE (FEMA LE) trig 272.0 mg/dL 0.0-15 0.0 high Not Available [facility] [address] [facility] 1, [place], [address], 03/05/2025 13:19:32 03/05/20 25 03/05/2025 LIPID PROFI LE (FEMA LE) HDL - direct 49.0 mg/dL >40.0 Not Available [facility] [address] [facility] 1, [place], [address], 03/05/2025 13:19:32 03/05/20 25 03/05/2025 LIPID PROFI LE (FEMA LE) VLDL - direct 54.4 mg/dL Not Available [facility] [address] [address], [place], [address], 03/05/2025 13:19:32 03/05/20 25 03/05/2025 LIPID PROFI LE (FEMA LE) LDL - direct 78.6 mg/dL 0.0-13 0.0 Not Available [facility] [address] [facility] 1, [place], [address], 03/05/2025 13:19:32 03/05/20 25 03/06/2025 T4, FREE T4, free 1.5 NG/dL 0.8-1. 8 normal Not Available [facility] [place], [address], 03/06/2025 06:40:52 03/05/20 25 03/06/2025 VITAM IN D,25- OH,TO AGUSTIN,I A vitamin D,25-oh,tota l,ia 50 NG/mL 30-100 normal Vitam in D Statu s 25-OH Vitam in D: Defic iency : <20 ng/mL Insuf ficie ncy: 20 - 29 ng/mL Optim al: > or = 30 ng/mL For 25-OH Vitam in D testi ng on patie nts on D2-burrell pplem entat ion and patie nts for whom quant itati on of D2 and D3 fract ions is requi red, the [employer] Assur eD(TM ) 25-OH VIT D, (D2,D 3), LC/MS /MS is recom karen d: order code 72098 (beverley ents >2yrs ). See Note 1 Note 1 For addit ional infor palomo miles refer to http: //[facility] par[facility] Rose stDia gnost ics.c om/fa q/FAQ 199 (This link is being provi ded for infor trent quigley/ andre jaimes purpo ses only. ) Not Available [address], [address], 03/06/2025 06:40:53 03/05/20 25 03/06/2025 IRON, TOTAL iron, total 119 mcg/d L 45-160 normal Not Available [facility] [address], [address], 03/06/2025 08:29:56 03/05/20 25 03/06/2025 PARIS TIN ferritin 14 NG/mL 16-288 low Not Available [facility] [address], [address], 03/06/2025 08:29:57 03/10/20 25 03/10/2025 fecal occul t blood , immun oassa y, stool iFOB positi ve Not Available [facility] ([facility]) [address] [place], [address], 03/10/2025 10:48:38 06/29/20 25 06/29/2025 respi rator y patho gens DNA and RNA panel , PCR, nasop haryn x Covid negati ve Not Available [facility] ([facility]) [address] [place], [address], 06/29/2025 12:47:39 06/29/20 25 06/29/2025 respi rator y patho gens DNA and RNA panel , PCR, nasop haryn x Rhinovirus negati ve Not Available [facility] ([facility]) [address] [place], [address], 06/29/2025 12:47:39 06/29/20 25 06/29/2025 respi rator y patho gens DNA and RNA panel , PCR, nasop haryn x Influenza A negati ve Not Available [facility] ([facility]) [address] [place], [address], 06/29/2025 12:47:39 06/29/20 25 06/29/2025 respi rator y patho gens DNA and RNA panel , PCR, nasop haryn x Influenza B negati ve Not Available [facility] ([facility]) [address] [place], [address], 06/29/2025 12:47:39 06/29/20 25 06/29/2025 respi rator y patho gens DNA and RNA panel , PCR, nasop haryn x RSV negati ve Not Available [facility] ([facility]) [address] [place], [address], 06/29/2025 12:47:39 06/29/20 25 06/29/2025 urina lysis , dipst ick Leukocytes Trace Not Available [facility] ([facility]) [address] [place], [address], 06/29/2025 12:49:20 06/29/20 25 06/29/2025 urina lysis , dipst ick Nitrite positi ve Not Available [facility] ([facility]) [address] [place], [address], 06/29/2025 12:49:20 06/29/20 25 06/29/2025 urina lysis , dipst ick Urobilinogen 1 Not Available [facility] ([facility]) [address] [place], [address], 06/29/2025 12:49:20 06/29/20 25 06/29/2025 urina lysis , dipst ick Protein 300 Not Available [facility] ([facility]) [address] [place], [address], 06/29/2025 12:49:20 06/29/20 25 06/29/2025 urina lysis , dipst ick pH 5.0 Not Available [facility] ([facility]) [address] [place], [address], 06/29/2025 12:49:20 06/29/20 25 06/29/2025 urina lysis , dipst ick Blood Large Not Available [facility] ([facility]) [address] [place], [address], 06/29/2025 12:49:20 06/29/20 25 06/29/2025 urina lysis , dipst ick Specific Pinole 1.030 Not Available [facility] ( [facility]) [address] [place], [address], 06/29/2025 12:49:20 06/29/20 25 06/29/2025 urina lysis , dipst ick Ketone Trace Not Available [facility] ([facility]) [address] [place], [address], 06/29/2025 12:49:20 06/29/20 25 06/29/2025 urina lysis , dipst ick Bilirubin Small Not Available [facility] ([facility]) [address] [place], [address], 06/29/2025 12:49:20 06/29/20 25 06/29/2025 urina lysis , dipst ick Glucose Negati ve Not Available [facility] ([facility]) [address] [place], [address], 06/29/2025 12:49:20 06/29/20 25 06/29/2025 urina lysis , dipst ick Appearance Cloudy Not Available [facility] ([facility]) [address] [place], [address], 06/29/2025 12:49:20 06/29/2006/29/2025 urina lysis , dipst ick Color Red Not Available [facility] ([facility]) [address] [place], [address], 06/29/2025 12:49:20 07/08/20 25 07/08/2025 HBA1C hemaglobin A1C 6.5 4.2-6. 5 normal Not Available [facility] [address] [facility] [address], [place], [address], 07/08/2025 11:37:31 07/08/20 25 07/08/2025 CBC WBC 9.4 x10 4.0-10 .5 Not Available [facility] [address] [facility] [address], [place], [address], 07/08/2025 11:44:29 07/08/20 25 07/08/2025 CBC RBC 4.09 x10 3.50-5 .50 Not Available [facility] [address] [facility] 1, [place], [address], 07/08/2025 11:44:29 07/08/2007/08/2025 CBC HGB 11.3 g/dL 12.0-1 6.0 low Not Available [facility] [address] [facility] 1, [place], [address], 07/08/2025 11:44:29 07/08/2007/08/2025 CBC HCT 35.8 % 37.0-4 7.0 low Not Available [facility] [address] [facility] 1, [place], [address], 07/08/2025 11:44:29 07/08/2007/08/2025 CBC MCV 87.5 fL 80.0-9 9.9 Not Available [facility] [address] [facility] 1, [place], [address], 07/08/2025 11:44:29 07/08/2007/08/2025 CBC MCH 27.6 pg 27.0-3 2.0 Not Available [facility] [address] [facility] 1, [place], [address], 07/08/2025 11:44:29 07/08/2007/08/2025 CBC MCHC 31.5 g/dL 32.0-3 6.0 low Not Available [facility] [address] [facility] 1, [place], [address], 07/08/2025 11:44:29 07/08/2007/08/2025 CBC RDW 14.6 % 11.5-1 4.5 high Not Available [facility] [facility] 1, [place], [address], 07/08/2025 11:44:29 07/08/20 25 07/08/2025 CBC plt 242.2 x10 140.0- 451.0 Not Available [facility] [address] [facility] 1, [place], [address], 07/08/2025 11:44:29 07/08/20 25 07/08/2025 CBC lymphocytes % 24.4 % 20.0-5 0.0 Not Available [facility] [address] [facility] 1, [place], [address], 07/08/2025 11:44:29 07/08/20 25 07/08/2025 CBC granulcytes % 69.7 % 30.0-7 0.0 Not Available [facility] [address] [facility] 1, [place], [address], 07/08/2025 11:44:29 07/08/20 25 07/08/2025 CBC monocytes % 4.6 % 2.0-16 .0 Not Available [facility] [address] [facility] 1, [place], [address], 07/08/2025 11:44:29 07/08/20 25 07/08/2025 CBC granulcytes# 6.5 x10 Not Danielle ilable [facility] [address] [facility] 1, [place], [address], 07/08/2025 11:44:29 07/08/20 25 07/08/2025 CBC lymphocytes # 2.3 x10 Not Available [facility] [address] [facility] 1, [place], [address], 07/08/2025 11:44:29 07/08/20 25 07/08/2025 CBC monocytes # 0.4 x10 Not Avai lable [facility] [address] [facility] [address] [facility], [place], [address], 07/08/2025 11:44:29 07/08/20 25 07/08/2025 CMP (FEMA LE) glucose 153.0 mg/dL 60.0-9 9.0 high Not Available [facility] [address] [facility] 1, [place], [address], 07/08/2025 12:25:50 07/08/20 25 07/08/2025 CMP (FEMA LE) BUN (blood urea nitrogen) 21.0 mg/dL 10.0-2 6.0 Not Available [facility] [address] [facility] 1, [place], [address], 07/08/2025 12:25:50 07/08/20 25 07/08/2025 CMP (FEMA LE) creatinine (serum) 1.3 mg/dL 0.4-1. 5 Not Available [id number] [address], [place], [address], 07/08/2025 12:25:50 07/08/20 25 07/08/2025 CMP (FEMA LE) BUN/creatini ne ratio 16.15 ratio Not Available [address] [address], [place], [address], 07/08/2025 12:25:50 07/08/20 25 07/08/2025 CMP (FEMA LE) eGFR calculated 41.0 Not Available [facility] [address] [address], [place], [address], 07/08/2025 12:25:50 07/08/20 25 07/08/2025 CMP (FEMA LE) total protein 8.1 g/dL 6.0-8. 5 Not Available [address] [address], [place], [address], 07/08/2025 12:25:50 07/08/20 25 07/08/2025 CMP (FEMA LE) total bilirubin 0.7 mg/dL 0.2-1. 3 Not Available [facility] [address] [facility] [address], [place], [address], 07/08/2025 12:25:50 07/08/2007/08/2025 CMP (FEMA LE) albumin 4.3 g/dL 3.5-5. 5 Not Available [facility] [address] [facility] [address], [place], [address], 07/08/2025 12:25:50 07/08/2007/08/2025 CMP (FEMA LE) globulin 3.8 calc Not Available [facility] [address] [address], [place], [address], 07/08/2025 12:25:50 07/08/20 25 07/08/2025 CMP (FEMA LE) AST (SGOT) 38.0 U/L 0.0-46 .0 Not Available [facility] [facility] [address] [facility] [address], [place], [address], 07/08/2025 12:25:50 07/08/2007/08/2025 CMP (FEMA LE) altv (SGPT) 29.0 U/L 13.0-6 9.0 normal Not Available [facility] [address] [facility] [address], [place], [address], 07/08/2025 12:25:50 07/08/2007/08/2025 CMP (FEMA LE) A/G ratio 1.1 ratio Not Available [facility] [address] [facility] [address], [place], [address], 07/08/2025 12:25:50 07/08/2007/08/2025 CMP (FEMA LE) ALP phos 105.0 U/L 30.0-1 40.0 normal Not Available [facility] [address] [facility] [address], [place], [address], 07/08/2025 12:25:50 07/08/2007/08/2025 CMP (FEMA LE) calcium 9.7 mg/dL 8.4-10 .5 Not Available [facility] [address] [facility] [address], [place], [address], 07/08/2025 12:25:50 07/08/2007/08/2025 CMP (FEMA LE) sodium 142.0 mmol/ L 136.0- 145.0 Not Available [facility] [address] [facility] [address], [place], [address], 07/08/2025 12:25:50 07/08/2007/08/2025 CMP (FEMA LE) potassium 4.2 mmol/ L 3.5-5. 1 Not Available [facility] [address] [facility] [address], [place], [address], 07/08/2025 12:25:50 07/08/2007/08/2025 CMP (FEMA LE) chloride 107.0 mmol/ L 98.0-1 10.0 normal Not Available [facility] [address] [facility] 1, [place], [address], 07/08/2025 12:25:50 07/08/2007/08/2025 CMP (FEMA LE) C02 25.0 mmol/ L 22.0-3 1.0 Not Available [facility] [address] [facility] 1, [place], [address], 07/08/2025 12:25:50 07/08/2007/08/2025 CMP (FEMA LE) anion gap 10.[address] [facility] [address] [facility] [address], [place], [address], 07/08/2025 12:25:50 07/08/20 25 07/08/2025 CMP (FEMA LE) osmolality 298.7 calc Not Available [facility] [address] [facility], [place], [address], 07/08/2025 12:25:50 07/08/20 25 07/09/2025 ALBUM IN, RANDO M URINE W/CRE ATINI NE creatinine, random urine 169 mg/dL 20-275 normal Not Available [place] [address] [place], [address], 07/09/2025 04:27:02 07/08/2007/09/2025 ALBUM IN, RANDO M URINE W/CRE ATINI NE albumin, urine 1.7 mg/dL see note: normal Refer ence Range : Refer ence Range Not estab lishe d Not Available [place] [address] [address] , [place], [address], 07/09/2025 04:27:02 07/08/20 25 07/09/2025 ALBUM IN, RANDO M URINE W/CRE ATINI NE albumin/crea tinine ratio, random urine 10 mg/g_ creat <30 normal The ADA defin es abnor malit ies in album in excre tion as follo ws: Album inuri a Categ ory Resul t (mg/g creat inine ) Traci l to Mildl y incre ased <30 Moder ately incre ased 30-29 9 Sever myesha incre ased > OR = 300 The ADA recom mends that at least two of three speci mens colle cted withi n a 3-6 month perio d be abnor mal befor e consi milvia g a patie nt to be withi n a diagn ostic categ ory. Not Available [facility] [address] [place], [address], 07/09/2025 04:27:02 07/08/20 25 07/09/2025 PARIS TIN ferritin 71 NG/mL 16-288 normal Not Available [facility] [address] [address] , [place], [address], 07/09/2025 04:27:02 Result Notes None recorded. Problems Name Problem SNOMED Code Status Onset Date Resolution Date Notes Provider Name and Address Organization Details Recorded Time Psoriasis 6550368 Active 2022 PSORIASIS ; Impressio n: of scalp [facility]angel Sch[facility] 4 11:25:21 Hyperglyc emia 19835008 Active 2022 Mariangelconcha Schmitt [facility] 4 11:25:09 Irritable bowel syndrome 36108874 Active 2022 Mariangelconcha Schmitt [facility] 4 11:25:15 Gastroeso phageal reflux disease 284953529 Active 2022 Mariangelconcha Schmitt [facility] 4 11:25:02 Osteoporo sis 22845093 Active 2022 Mariangelconcha Schmitt [facility] 4 11:25:17 Dysthymia 64562750 Active 2022 DYSTHYMIC DISORDER [facility] 4 11:24:58 Chronic anxiety 865749648 Active 2022 Mariangelconcha Schmitt [facility] 4 11:24:51 Complicat ion due to diabetes mellitus type 2 Active 2022 TYPE II DIABETES MELLITUS WITH COMPLICAT ION, UNCONTROL LED; Impressio n: fair control. Mariangelconcha Schmitt [facility] 4 11:24:55 Squamous cell carcinoma of skin 167584071 Active 2022 Ramos Kennedy MD [address] [place] [address], [phone] 5, [facility] 3 17:17:26 Essential hypertens ion 61209253 Active 2022 Ramos Kennedy MD [address] [place] [address], [phone] 5, [facility] 3 17:17:40 Hypothyro idism 32563541 Active 2022 Ramos Kennedy MD [address] [place] [address], [phone] 5, [facility] 3 17:18:00 Osteoarth ritis 691815096 Active 2022 Ramos Kennedy MD [address] [place] [address], [phone] 5, [facility] 3 17:18:11 Diabetes mellitus 63544785 Active 2022 Ramos Kennedy MD [address] [place] [address], [phone] 5, [facility] 5 11:37:11 Generaliz ed anxiety disorder 99954866 Active 2022 Ramos Kennedy MD [address] [place] [address], [phone] 5, [facility] 3 17:05:14 Squamous cell carcinoma of skin of face 072077094 Active 2022 Ramos Kennedy MD [address] [place] [address], [phone] 5, [facility] 3 16:48:04 Allergic conjuncti vitis 350602058 Active 2022 Ramos Kennedy MD [address] [place] [address], [phone] 5, [facility] 3 16:57:59 Thrombocy topenic disorder 680973802 Active 2022 Ramos Kennedy MD [address] [place] [address], [address] [place] [address] 5, [facility] 3 16:32:17 Chronic constipat ion 969324047 Active 2022 Ramos Kennedy MD [address] [place] [address] 5, [facility] 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 3 10:49:56 Closed fracture of right clavicle 258878954537 73393 Active 2023 Ramos Kennedy MD [address] [place] [address] 5, [facility] 4 16:00:21 Multiple actinic keratoses 272888056 Active 2023 Ramos Kennedy MD [address] [place] [address] 5, [facility] 5 10:58:16 Acute bacterial bronchiti s 269571563 Active 2024 Cedrick Reynaga MD [address] [place] [address] 5, [facility] 5 12:37:25 Chronic low back pain 660440211 Active 2024 Ramos Kennedy MD [address] [place] [address] 5, [facility] 5 11:39:42 Fatigue 56215763 Active 2024 Ramos Kennedy MD [address] [place] [address], [facility] 5 11:40:01 Chronic fatigue syndrome 60082389 Active 2024 Ramos Kennedy MD [address] [place] [address], [phone] 5, [facility] 5 10:59:58 Dry eyes 563213511 Active 2024 Ramos Kennedy MD [address] [place] [address], [phone] 5, [facility] 5 11:01:22 Problem Notes None recorded. Procedures Surgical History Date Name Laterality Status Provider Name and Address Organization Details Recorded Time 5 Cryo Lesion-#1 completed Ramos Kennedy MD [address] [place] [address], [phone], [facility] 07/08/2025 10:56:18 Back Surgery completed Veronica Stack [facility] 09/29/2024 14:13:22 Imaging Results None recorded. Procedure Notes None recorded. Medical Equipment None Reported. Allergies Allergen ID Allergen Name Allergen Category Reaction Reaction Severity Criticality Documentation Date Start Date Code Code System Note Provider Name and Address Organization Details Recorded Time 293 carbamaze pine medicatio n other Not available Not available 02/01/20232001 RxNorm PAYAL berger [facility] 3 16:55:43 294 hydrocodo ne Not available Not available Not available Not available 02/01/[address] [facility] 3 16:55:52 295 Cymbalta medicatio n Not available Not available Not available 02/01/2023 [address] [facility] 3 16:56:00 296 codeine medicatio n Not available Not available Not available 02/01/2023 2670 RxNorm PAYAL RENTERIA celine, [facility] 3 16:56:11 40413 hydrochlo rothiazid e / lisinopri l medicatio n hallucina tions moderate low 06/10/2023 66850 8 RxNorm [facility] 4 11:25:44 61023 nitrofura ntoin medicatio n hallucina tions moderate low 06/10/2023 7454 RxNorm Mariangel Roxannetheodora [facility] 4 11:25:55 94524 codeine sulfate medicatio n Not available Not available Not available 06/10/2023 85791 RxNorm Comme nt: Recor ded 01/04 9:18A M by Sheela torre RN, Offic e Visit ; Bebo marilee; Esperanza haddad ce: *; Reaso n: Drug aller gy; ; [facility] 4 07:44:25 63379 prednison e medicatio n Not available Not available Not available 09/29/2024 8640 RxNorm cause d blood sugar s to spike NISHA HADLEY, [address], [address] [place] [address], L.L.CV[facility]ki 4 14:24:27 Medications Name Sig Start Date Stop Date Status Note LastModified by Organization Details LastModified Time levothyro xine 175 mcg tablet TAKE 1 TABLET BY MOUTH EVERY DAY active Not Available Not Available No t Available promethaz ine-DM 6.25 mg-15 mg/5 mL oral syrup TAKE 10 ML EVERY 6 HOURS NEEDED FOR COUGH 02/01 completed Not Available Not Available Not Available clonidine HCl 0.1 mg tablet two times daily 07/08 completed DX Code Needed Allergic Conjunct ivitis Not Available Not Available Not Available donepezil 5 mg tablet TAKE 1 TABLET BY MOUTH EVERY DAY 03/05 completed Not Available Not Available Not Available azithromy terrie 250 mg tablet TAKE 2 TABLETS BY MOUTH TODAY, THEN TAKE 1 TABLET DAILY FOR 4 DAYS DIRECTED 03/05 completed Not Available Not Available Not Available benzonata te 200 mg capsule TAKE 1 CAPSULE BY MOUTH THREE TIMES A DAY 03/05 completed Not Available Not Available Not Available metoprolo l succinate ER 50 mg tablet,ex tended release 24 hr TAKE 1 TABLET BY MOUTH EVERY DAY FOR PALPITAT IONS active Not Available Not Available No t Available hydrocodo ne 5 mg-acetam inophen 325 mg tablet TAKE 1 TABLET BY MOUTH EVERY 4 TO 6 HOURS NEEDED 03/05 completed Not Available Not Available Not Available donepezil 10 mg tablet TAKE 1 TABLET BY MOUTH EVERY DAY FOR 30 DAYS active Not Available Not Available No t Available phenazopy ridine 200 mg tablet TAKE 1 TABLET BY MOUTH THREE TIMES A DAY NEEDED FOR BLADDER PAIN 02/01 completed Not Available Not Available Not Available triamcino lone acetonide 0.5 % topical ointment APPLY TINY AMOUNT TO EAR CANAL WITH FINGER TWICE DAILY FOR 7 DAYS 02/01 completed Not Available Not Available Not Available tramadol 50 mg tablet TAKE 1 TABLET BY MOUTH EVERY 6 HOURS DIRECTED 10/16 completed Not Available Not Available Not Available ondansetr on 8 mg disintegr ating tablet TAKE 1 TABLET BY MOUTH EVERY 6 HOURS NEEDED FOR NAUSEA AND VOMITING 09/29 completed Not Available Not Available Not Available levothyro xine 100 mcg tablet TAKE 1 TABLET BY MOUTH EVERY DAY 02/01 completed Not Available Not Available Not Available alprazola m 0.5 mg tablet TAKE 1 TABLET BY MOUTH THREE TIMES A DAY NEEDED FOR 30 DAYS active Not Available Not Available No t Available levothyro xine 125 mcg tablet TAKE 1 TABLET BY MOUTH EVERY DAY 06/24 completed Not Available Not Available Not Available olopatadi ne 0.1 % eye drops INSTILL 1 DROP INTO AFFECTED EYE(S) TWICE A DAY AT AN INTERVAL OF 6 TO 8 HOURS 05/17 completed Not Available Not Available Not Available polymyxin B sulfate 10,000 unit-trim ethoprim 1 mg/mL eye drops INSTILL 1 DROP INTO AFFECTED EYE(S) EVERY 8 HOURS 09/29 completed Not Available Not Available Not Available valsartan 320 mg tablet TAKE 1/2 TABLET BY MOUTH EVERY DAY 03/21 completed Not Available Not Available Not Available omeprazol e 20 mg capsule,d elayed release TAKE 1 CAPSULE BY MOUTH TWICE A DAY active Not Available Not Available No t Available diclofena c sodium 75 mg tablet,de layed release BID/PRN 07/08 completed as needed for arthriti s Not Available Not Available Not Available levothyro xine 200 mcg tablet TAKE 1 TABLET BY MOUTH EVERY DAY 07/08 completed Not Available Not Available Not Available cefdinir 300 mg capsule TAKE 1 CAPSULE BY MOUTH EVERY 12 HOURS FOR 7 DAYS 07/08 completed Not Available Not Available Not Available metformin ER 500 mg tablet,ex tended release 24 hr TAKE 1 TABLET BY MOUTH EVERY DAY 2024 active Not Available Not Available Not Avai lable amoxicill in 875 mg-potass ium clavulana te 125 mg tablet TAKE 1 TABLET BY MOUTH TWICE DAILY 03/05 completed Not Available Not Available Not Available Senna-S 8.6 mg-50 mg tablet Take 2 tablets every day by oral route. 2022 active Not Available Not Available Not Avai lable metoprolo l succinate daily 10/16 completed for palpitat ions. vo RM/CC; Recorded 11/30/19 23 8:20AM by Ramos Kennedy MD, Refill Request; Refill Quantity : 100; Tablet; Not Available Not Available Not Available metformin daily 10/16 completed for sugar control. Take with supper DOC DM/sd; 93493; Recorded 12/21/19 23 12:45PM by Soco Weeks (Authori vito through Florian Wan DO), Refill Request; Refill Quantity : 0; Not Available Not Available Not Available [facility] Levothyro xine Sodium daily 10/16 completed new dose.; Recorded 11/02/20 22 4:58PM by Ramos Kennedy MD, Annotati on/Adden dum; Refill Quantity : 90; Capsule; Not Available Not Available Not Available hydrochlo rothiazid e 12.5 mg tablet TAKE 1 TABLET BY MOUTH EVERY DAY active Not Available Not Available No t Available TRUEplus Lancets 28 gauge daily 2019 active Not Available Not Available Not Avai lable True Metrix Glucose Test Strip daily 2019 active Not Available Not Available Not Avai lable Blink Gel Tears 0.25 % eye drops Apply 1 mg twice a day by ophthalm ic route as directed . 2024 active Not Available Not Available Not Avai lable Vitals Date Recorded Body height Body mass index (BMI) Body weight Body temperature Heart rate Oxygen saturation Oxygen saturation in Arterial blood by Pulse oximetry Systolic And Diastolic Provider Name and Address Organization Details Last Updated DateTime 5 165.1 cm 24.3 kg/m2 12558.4 9 g 98 [degF] 98 /min 98 % 98 % 146/60 mm[Hg] Eva Collins [facility] 5 12:26:09 Date Recorded Body height Body mass index (BMI) Body weight Oxygen saturation Oxygen saturation in Arterial blood by Pulse oximetry Heart rate Systolic And Diastolic Provider Name and Address Organization Details Last Updated DateTime 5 165.1 cm 25 kg/m2 57004.8 6 g 95 % 95 % 64 /min 130/70 mm[Hg] MELVIN SARGENT [facility] 5 11:09:25 Date Recorded Body height Body mass index (BMI) Body weight Oxygen saturation Oxygen saturation in Arterial blood by Pulse oximetry Heart rate Respiratory rate Body temperature Systolic And Diastolic Provider Name and Address Organization Details Last Updated DateTime 5 165.1 cm 23.1 kg/m2 99896.3 4 g 97 % 97 % 90 /min 16 /min 98.1 [degF] 180/70 mm[Hg] Veronica Stack [facility] 5 12:45:33 Date Recorded Body height Body mass index (BMI) Body weight Heart rate Systolic And Diastolic Provider Name and Address Organization Details Last Updated DateTime 07/08/2025 165.1 cm 24.1 kg/m2 24380.89 g 72 /min 140/64 mm[Hg] PAYAL RENTERIA [facility] 5 10:29:33 Date Recorded Body height Body mass index (BMI) Body weight Oxygen saturation Oxygen saturation in Arterial blood by Pulse oximetry Heart rate Respiratory rate Body temperature Systolic And Diastolic Provider Name and Address Organization Details Last Updated DateTime 4 165.1 cm 25.6 kg/m2 34486.2 2 g 96 % 96 % 66 /min 16 /min 98.2 [degF] 154/80 mm[Hg] Veronica Stack [facility] 4 14:15:25 Social History Question Answer Notes LastModified by Organizat ion Details LastModified Time Tobacco Smoking Status Never Smoker PAYAL berger [facility] 02/01/2023 16:53:15 What Was The Date Of Your Most Recent Tobacco Screening? 06/29/2025 [email or web address] Information not available 06/29/2025 Sex: Unknown Functional Status Question Answer Note LastModified by Organization D etails LastModified Time What is your level of alcohol consumption? None [email or web address] Information not available 02/01/2023 Mental Status None recorded. Family History Relationship Description Onset Age of this Age Resolved Age Notes LastModified by Organization Details LastModified Time Mother Malignant neoplasm of colon [email or web address] Not available 07/08 10:34:00 Medical History No medical history recorded. Gynecological HistoryNo gynecological history recorded. Obstetrics History GPAL:G 0 P 0 0 0 0 Immunizations Vaccine Type Date Status Note Provider Nam e and Address Organization Details Recorded Time Influenza, split virus, trivalent, preservative 3 completed Not Available [facility] 06/10/2023 02:47:11 Influenza, split virus, trivalent, preservative [address] [facility] 03/04/2024 11:48:34 Influenza, split virus, quadrivalent, preservative [address] [facility] 03/04/2024 11:48:34 Past Encounters Encounter ID Performer Location Encounter Start Date Encounter Closed Date Diagnosis/Indication Diagnosis SNOMED-CT Code Diagnosis ICD10 Code Diagnosis IMO Codes Diagnosis Note [id number] Ramos Kennedy MD [facility] ([facility]) [address] [place] [id number] 02/01/2023 16:39:07 02/07/2023 11:55:50 Squamous cell carcinoma of skin 550098804 C44.92 Essential hypertension 20123595 I10 a little up today will recheck in a few months. Hypothyroidism 97545848 E03.9 recheck in 3 months. Osteoarthritis 660770625 M19.90 stable. Diabetes mellitus 635119 09 E11.9 [id number] Ramos Kennedy MD [facility] ([facility]) [address] [place] [id number] 03/21/2023 15:47:44 03/21/2023 17:19:23 Diabetes mellitus 14989804 E11.9 Essential hypertension 77481645 I10 a little up today will recheck in a few months. Hypothyroidism 34355009 E03.9 recheck in 3 months. Squamous c ell carcinoma of skin of face 574001055 C44.[address] Roche in Dermatolog y being made. Osteoarthritis 249390721 M19.90 stable. Allergic conjunctivitis 216311140 H10.13 [id number] Ramos Kennedy MD [facility] ([facility]) [address] [place] [id number] 05/30/2023 15:45:29 05/30/2023 16:39:50 Generalized anxiety disorder 48361921 F41.1 Osteoarthritis 424937706 M19.90 stable. Diabetes mellitus 363093 09 E11.9 Essential hypertension 69836608 I10 a little up today will recheck in a few months. Hypothyroidism 05862341 E03.9 Thrombocyt openic disorder 331516557 D69.6 Chronic constipation 236 970857 K59.09 [id number] Ramos Kennedy MD [facility] ([facility]) [address] [place] [id number] 10/16/2023 09:56:30 10/16/2023 11:21:17 Irritable bowel syndrome 33888888 K58.9 Chronic anxiety 04160117 9 F41.9 Gastroesop hageal reflux disease 751105217 K21.9 Chronic constipation 236 049830 K59.09 Osteoarthritis 556941708 M19.90 stable. Hypothyroidism 61941630 E03.9 Essential hypertension 74680770 I10 a little up today will recheck in a few months. Diabetes mellitus 751728 09 E11.9 Hyperglycemia 19748563 R 73.9 Senile dementia 63386765 F03.90 with some associated paranoia. [id number] Ramos Kennedy MD [facility] ([facility]) [address] [place] [id number] 03/04/2024 11:36:12 03/04/2024 12:30:33 Diabetes mellitus 40748074 E11.9 Essential hypertension 40288902 I10 stable Generalize d anxiety disorder 07028781 F41.1 Hypothyroidism 49615837 E03.9 Osteoarthritis 514352364 M19.90 stable. [id number] PATITO COPELAND [facility] ([facility]) [address] [place] [id number] 05/20/2024 10:09:34 05/20/2024 10:32:05 Abrasion of right cornea 1292873832 5203784 S05.01XA Discussed use of eye drops. Wear sunglasses when outside.If symptoms do not resolve on the eye drops or worsen then f/u. [id number] Ramos Kennedy MD [facility] ([facility]) [address] [place] [address] [id number] 06/24/2024 15:12:13 06/24/2024 16:39:51 Closed fracture of right clavicle 8937375628 0070375 S42.001D appt. for evaluation by orthopedic surgeon Essential hypertension 57285058 I10 stable Osteoporosis 97459119 M8 1.0 [id number] Ramos Kennedy MD [facility] ([facility]) [address] [place] [address] [id number] 09/04/2024 11:02:24 09/05/2024 12:16:56 Diabetes mellitus 49358691 E11.9 Hypothyroidism 12674382 E03.9 Multiple a ctinic keratoses 474955844 L57.0 2 lesions on face, one left mid cheek and one right sabianist. Both frozen with cryotherap y with 5 second freeze, thaw and refreeze. Senile dementia 91156580 F03.90 seemed to improve for a bit with Donepezil. Will go up. [id number] PATITO COPELAND [facility] ([facility]) [address] [place] [address] [id number] 09/29/2024 14:06:55 09/29/2024 16:11:01 Acute pansinusitis 3531403 J01.40 Discussed use of antibiotic . Take with food.May use Rich's nasal inserts and also apply on chest. Push oral fluids. Consider nasal saline rinses [id number] Cedrick Reynaga MD [facility] ([facility]) [address] [place] [id number] 12/19/2024 12:01:08 12/19/2024 13:11:00 Acute bacterial bronchitis 888534125 J20.9 Treat with antibiotic s and provide Tessalon Perles for the cough. Continue supportive care including over-the-c ounter medication to help with other symptoms. Follow-up if symptoms do not improve. [id number] Ramos Kennedy MD [facility] ([facility]) [address] [place] [id number] 03/05/2025 10:56:15 03/06/2025 11:31:18 Diabetes mellitus 60135556 E11.9 17636 Hypothyroidism 05743930 E03.9 Chronic low back pain 27 0190865 M54.50 G89.29 73583710 Fatigue 74979748 R53.82 [id number] Generalize d anxiety disorder 16181766 F41.1 [id number] PATITO BUTLER [facility] ([facility]) [address] [place] [address] [id number] 06/29/2025 12:40:02 06/30/2025 10:01:41 Fever 341936193 R50.9 711604 Dysuria 38944702 R30.0 56582 Acute urin jorge tract infection 211235449 N39.0 412871 Discussed to take antibiotic as prescribed until completedU rine culture ordered - will notify of any resultsEdu cated patient on increasing PO fluids of water, decreasing caffeine (coffee) and sugary drinks. Discussed if developmen t of abdominal pain, flank pain, fever, vomiting, worsening symptoms return to walk-in, PCP or ED for re-evaluat ion. Return to clinic if any changes, any worsening, any concernsPa tient verbalized understand ing of plan. [id number] Ramos Kennedy MD [facility] ([facility]) [address] [place] [address] 07/08/2025 10:10:51 07/08/2025 11:11:50 Generalized anxiety disorder 63364198 F41.1 Gastroesop hageal reflux disease 606970205 K21.9 Osteoarthritis 588706171 M19.90 stable. Hypothyroidism 19479366 E03.9 Diabetes mellitus 839208 09 E11.9 03864 Multiple a ctinic keratoses 005908739 L57.0 562166 one lesion on left cheek and left lateral nose both frozen with cryotherap y. Chronic fa tigue syndrome 14345110 R53.82 Dry eyes 865701791 H04.1 23 [id number] Health Concerns Section Related Observation LastModified by Organization Detai ls LastModified Time None Recorded Concern Status LastModified by Organization Details LastModified Time None Recorded Advance Directives Directive None Recorded Payers Insurance Date Sequence Insurance Name Policy Number Policy Perez Covered Member ID Perez Member ID Guarantor Name 06/29/2025 1 [place] [facility] ([facility]IT[facility] [place]) Stephanie Quinones [id number] Stephanie Quinones 07/05/2025 2 [employer] (MEDICARE SUPPLEMENT) Stephanie Quinones [id number] Stephanie Nunu Quinones 06/29/2025 [place] [facility] Stephanie L Joni [id number] Stephanie L Joni 06/29/2025 [place] - [facility] (MEDICARE) Stephanie Nunu Quinones [id number] Stephanie Quinones Notes Date Note Type Note Provider Name and Address Organization Details Recorded Time 4 text/html Sinusitis/AllergyReporte d by PatientROS as noted in the HPI walk in patientpatient is here today for sinus pressure, fatigue, runny nose, and cough that started over a week ago. No otc meds taken, denies fever. Eating/drinking normally. PATITO COPELAND [address] [place], [address], [facility] 09/29/2024 15:59:57 5 text/html walk inx 1 week cough, congestion. Patient denies fever but has been having shortness of breath Cedrick Reynaga MD [address] [place] [address], [phone], [facility] 12/24/2024 16:34:43 5 text/html DiabetesReported by PatientHPIFor duration, patient reportschronic. For control, patient reportsusually well controlled,improved since last visit, andtreated with diet and oral medications. For compliance, patient reportscompliant with medicationsandcompliant with follow-up visits. For associated symptoms, patient reportsno increased thirst,no increased appetite, andno increased urination. Back PainReported by PatientHPIFor severity, patient reportspain level 6/10but reportsunchanged. For location, patient reportsno radiationandlumbar __. For quality, patient reportssharpanddull (ache.). For timing, patient reportsintermittent. For alleviating factors, patient reportsrest. For aggravating factors, patient reportsstanding. For associated symptoms, patient reportsno numbnessandno tingling. HypothyroidReported by PatientHPIFor reason for visit, patient reportsgeneral check-up. For associated symptoms, patient reportsno weaknessandno lightheadedness. For treatment, patient reportstaking medication as prescribed. Ramos Kennedy MD [address] [place] [address], [phone], [facility] 03/05/2025 11:44:12 5 text/html FeverReported by PatientROS as noted in the HPI walk in patientpatient is here today for fever 99.7 that started this morning and has been fatigue the last week. No known exposure to illness. Hx of dementia. PATITO BUTLRE [address] [place], [address], [facility] [place] 06/29/2025 13:07:41 text/html Reflux/GERDReported by PatientHPIFor severity, patient reportsimproving. For alleviating factors, patient reportsmedication. For associated symptoms, patient reportsno frequent coughing,no globus sensation,no hoarseness,no belching/burping,no nausea,no vomiting,no regurgitation,no shortness of breath, andno chest pain. HypothyroidReported by PatientHPIFor associated symptoms, patient reportsfatiguebut reportsno weaknessandno lightheadedness. For treatment, patient reportstaking medication as prescribed. Ramos Kennedy MD [address] [place], [address], [facility] [place] 07/08/2025 11:07:15 OBGyn Episode No OBEpisode recorded.
--- OUTSIDE RECORDS SUMMARY | 2025-09-07 18:38 | XMS_ITS | Encounter Summary ---
[facility] Organization [facility] Address [address] [place] [address] Care Team Providers Care Clinical Data Programmer Name Role Phone Unavailable Primary Care Provider Unavailabl e Encounter Details Date Type Department Care Team (Latest Contact Info) Description 12/18/2002 Outpatient Historical [facility] Rachael, Ken Bueno MD [address] [facility] [address] [place] [address] LUMP OR MASS IN BREAST (Primary Dx) Social History Tobacco Use Types Packs/Day Years Used Date Smoking Tobacco: Never Assessed Comments Unknown Sex and Gender Information Value Date Recorded Sex Assigned at Not on file Legal Sex Female 6:22 AM 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
--- OUTSIDE RECORDS SUMMARY | 2025-09-07 18:38 | XMS_ITS | Clinical Summary ---
Author Organization [facility] Address [address] [place] [address] Phone Care Team Providers Care Lubrication Supervisor Name Role Phone Inocente Kennedy MD Primary Care Provider [phone] Allergies Active Allergy Reactions Criticality Noted Date Comments Carbamazepine Unknown 09/23/2021 Codeine Unknown 09/23/2021 Duloxetine Unknown 09/23/2021 Hydrocodone Unknown 09/23/2021 Lisinopril-Hydrochlorothiazide Hallucination Low Nitrofurantoin Hallucination Low 09/23/2021 Medications ALPRAZolam (XANAX) 0.5 mg tablet Take 0.5 mg by mouth 3 times daily as needed for Anxiety. Active levothyroxine 112 mcg tablet Take 112 mcg by mouth daily in the morning. Active diclofenac sodium (VOLTAREN) 75 mg Tablet, Delayed Release (E.C.) Take 75 mg by mouth 2 times daily as needed. Active traMADoL (ULTRAM) 50 mg tablet Take by mouth every 6 hours as needed for Pain. Active metFORMIN (GLUCOPHAGE XR) 500 mg Extended Release 24 hour tablet Take 500 mg by mouth daily. Active metoprolol succinate (TOPROL XL) 50 mg Extended Release 24 hour tablet Take 50 mg by mouth daily. Active omeprazole (PriLOSEC) 20 mg Capsule, Delayed Release(E.C.) Take 20 mg by mouth daily. Active citalopram (CeleXA) 10 mg tablet Take 10 mg by mouth daily. Active hydroCHLOROthiaz matt (HYDRODIURIL) 12.5 mg tablet Take 12.5 mg by mouth daily. Active gabapentin (NEURONTIN) 100 mg capsule Take 200 mg by mouth daily. Active valsartan (DIOVAN) 320 mg tablet Take 160 mg by mouth daily. Active aspirin (JIMMY CHEWABLE) 81 mg Tablet, Chewable Take 81 mg by mouth daily. 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 Gender Identity Not on file Sexual Orientation Not on file Last Filed Vital Signs Vital Sign Reading Time Taken Comments Blood Pressure 137/92 02/02/2022 8:12 AM CDT Pulse 61 02/02/2022 8:12 AM CDT Temperature - - Respiratory Rate 16 02/02/2022 8:12 AM CDT Oxygen Saturation 100% 02/02/2022 8:12 AM CDT Inhaled Oxygen Concentration - - Weight 65.3 kg (144 lb) 01/28/2022 2:08 PM CDT Height 165.1 cm (5' 5 ) 01/28/2022 2:08 PM CDT Body Mass Index 23.96 01/28/2022 2:08 PM CDT Plan of Treatment Health Maintenance Due Date Last Done Comments DTAP/TDAP/TD VACCINES (1 - Tdap) 02[birth year]19/1954 PNEUMOCOCCAL VACCINE 50+ YEARS (1 of 1 - PCV) 02/19/19 86 ZOSTER VACCINE (1 of 2) 02/19/1986 OSTEOPOROSIS SCREENING 02/19/2001 RSV VACCINE (60+ or ) (1 - 1-dose 75+ series) 02/19/2011 INFLUENZA VACCINE (#1) 2025 Medical Devices Implanted Type Area Assault Amphibious Vehicle Crewman Device Identifier Shelf Expiration Date Model / Serial / Lot Stent Bili Plastic Duodenal Bend 10fr 7cm [id number] - [id number] Implanted:Qty: 1 on 10/01/2021 by Shaka Day MD at [facility] Stent N/A: Bile Duct Hunie JESENIA 09/21/2023 [id number] / / [id number] Insurance MEDICARE PART A AND B [id number] Advance Directives For more information, please contact: [phone] * Full Code (Latest Code Status on File) Date Activated Date Inactivated Comments 02/02/2022 6:58 AM 02/02/2022 10:31 AM * Full Code Date Activated Date Inactivated Comments 10/01/2021 11:03 AM 10/01/2021 4:48 PM Care Teams Lubrication Supervisor Relationship Specialty Start Date End Date Inocente Kennedy MD [address] [address] PCP - General Family Practice 09/27/21
[2025-09-07 18:39] LABS: Hematocrit 34.9 % (36-47); Hemoglobin 10.80 g/dL (11.27-16.99); Mean Corpuscular HGB Conc 30.9 g/dL (30-55); Mean Corpuscular Hemoglobin 27.5 pg (27-33); Mean Corpuscular Volume 88.8 fl (85-98); Nucleated Red Blood Cells % 0 %; Platelet Count 136 10^3/cmm (157-399); Red Blood Count 3.93 10^6/uL (3.85-5.65); White Blood Count 5.37 10^3/uL (3.29-11.43)
--- NOTE | 2025-09-07 18:45 | W.ED.CHESTPA ---
HPI - Chest Pain General: Chief Complaint: Chest Pain Stated Complaint: CP Time Seen by Provider: 09/07/25 18:19 History of Present Illness: Patient is a female who presents with acute onset of back and chest pain that began approximately 3 hours prior to arrival. The pain started while she was sitting in a chair, with no preceding trauma, exertion, or other precipitating factors. She reports that the pain is located between her shoulder blades and radiates to her chest. Patient endorses that it hurts to breathe and she is experiencing associated nausea. She denies any prior similar episodes. She reports a mild cough recently but denies productive cough, fever, or other symptoms of infection. She denies any lower extremity edema. Patient has no known history of cardiac disease or hypertension. She states she has been feeling well overall until this acute episode. Related Data Home Medications ?Medication ?Instructions ?Recorded ?Confirmed aspirin 325 mg tablet 325 mg PO DAILY 02/27/20 08/08/24 hydrochlorothiazide 12.5 mg tablet 12.5 mg PO DAILY 02/27/20 08/08/24 metformin 500 mg tablet,extended 500 mg PO DAILY 09/01/20 08/08/24 release 24 hr metoprolol succinate 50 mg 50 mg PO DAILY 09/01/20 08/08/24 tablet,extended release 24 hr alprazolam 0.5 mg tablet 0.5 mg PO DAILY 06/07/22 08/08/24 levothyroxine 125 mcg capsule 125 mcg PO DAILY 06/07/22 08/08/24 omeprazole 20 mg capsule,delayed 20 mg PO BID 06/07/22 08/08/24 release Previous Rx's ?Medication ?Instructions ?Recorded ondansetron 8 mg disintegrating 8 mg PO .q6 PRN nausea and 06/20/24 tablet vomiting #14 tabs polyethylene glycol 3350 17 17 g PO DAILY #510 grams 06/20/24 gram/dose oral powder (Miralax) doxycycline hyclate 100 mg tablet 100 mg PO BID 7 days #14 tabs 09/07/25 hydrocodone 5 mg-acetaminophen 325 1 tab PO Q6H PRN pain #7 tabs 09/07/25 mg tablet Allergies Allergy/AdvReac Type Severity Reaction Status Date / Time codeine Allergy ADR-Cramping Verified 08/08/24 10:06 of the Muscles nitrofurantoin (From Allergy ADR-Halluci Verified 08/08/24 10:06 Macrobid) radha Review of Systems Narrative: Constitutional: Denies fever. Respiratory: Reports mild cough, non-productive. Pain with inspiration. Cardiovascular: Denies known cardiac history. Denies lower extremity edema. Gastrointestinal: Reports nausea. Musculoskeletal: Reports back pain between shoulder blades. All other systems: Limited information available from current encounter. PFS ED PFSH: Medical History Chronic kidney disease Anxiety and depression Degenerative arthritis History of cardiac arrhythmia History of recurrent UTI (urinary tract infection) GERD (gastroesophageal reflux disease) Type 2 diabetes mellitus Hypertension Hypothyroidism Surgical History H/O: knee surgery History of back surgery Family History Sister Cancer Mother Cancer stomach Father Accident Other Diabetes Hypertension Denies family history of CAD (coronary artery disease) Clotting disorder Dementia Hyperlipidemia Psychiatric illness Chronic kidney disease (CKD) Suicide Anesthesia complication Bleeding disorder Lung disease Stroke Social History Smoking and tobacco/nicotine status: never used tobacco/nicotine Alcohol intake: never Substance/Drug Use: unknown Adopted: No Caregiver/support person: No Lives independently: Yes Marital status: / Current occupational status: retired Current gender identity: Female Physical Exam Const: GENERAL APPEARANCE: cooperative and ill appearing (Mildly) HENMT: COMMON NORMALS: normocephalic, atraumatic and Normal external nose present HEAD & SCALP: normocephalic and atraumatic FACE & SINUS: normal facial exam and face symmetric NOSE: Normal external nose present Eye: COMMON NORMALS: Equal, round and reactive pupils present and EOMs intact bilaterally PUPIL: Yes Equal, round and reactive pupils present Neck/C-Spine: GENERAL: Yes trachea midline Chest: CHEST: Yes Symmetrical chest wall rise OTHER: Diffuse tenderness across thoracic spine/upper back. Pain with chest compression nonfocal. Resp: COMMON NORMALS: normal respiratory effort, No retractions, No use of accessory muscles and clear to auscultation bilaterally AUSCULTATION: clear to auscultation bilaterally Cardio: COMMON NORMALS: regular rate and regular rhythm RATE: regular rate RHYTHM: regular rhythm GI: COMMON NORMALS: Normal to inspection, nondistended, normoactive bowel sounds present Extremity: COMMON NORMALS: no pedal edema Neuro: BECCA COMA SCALE: document GCS findings Becca coma scale eye opening: Spontaneous [place] coma scale verbal response: Orientated Becca coma scale motor response: Obey commands [place] coma scale total score: 15 SENSORY EXAM: Yes extremities (intact) Psych: COMMON NORMALS: speech normal SPEECH: Yes normal speech Skin: COMMON NORMALS: no rashes or lesions noted GENERAL SKIN EXAM: no rashes or lesions noted Course Vital Signs: Vital signs: Vital Signs Temperature 97.6 F 09/07/25 18:14 Pulse Rate 77 09/07/25 22:34 Respiratory Rate 14 09/07/25 22:34 Blood Pressure 163/70 09/07/25 22:34 Pulse Oximetry 95 09/07/25 22:34 Oxygen Delivery Me thod Room Air 09/07/25 18:14 MDM - Chest Pain Medical Decision Making 89-year-old female with pleuritic type chest discomfort. She is hypertensive on arrival. Room air saturations are normal. Other vitals are normal. She states that she took her metoprolol and hydrochlorothiazide today. Hemoglobin is 11. Bicarbonate is 21 and creatinine is 1.3. Chest x-ray is nonacute. Troponin initially is 15, with a 2-hour delta of -2. Her EKG showed a sinus rhythm with a rate of 65. PVCs are present. Otherwise intervals are normal. No acute ST wave changes. EKG is timed 1817 read 1819. Due to concern with hypertension and pain for dissection chest CTA is ordered. There is a ground glass opacity in the right upper lobe. Similar to the [address] in 2011. It is grown slightly. There is some infiltration surrounding the could be focal pneumonia. This will be treated. She may require a repeat scan in a couple of months. She was informed of this. Blood pressure is improved. Will treat with doxycycline and have her watch her blood pressure she is stable for discharge at this point. Lab Data 09/07/25 18:20 09/07/25 18:20 Radiology Impressions Chest X-Ray 09/07/25 18:31 IMPRESSION: No acute findings. Chest CTA 09/07/25 19:22 IMPRESSION: 1. Increased size right apical ground-glass opacity measuring up to 3.5 cm with 6 mm solid component raises concern for malignancy. 2. Additional scattered subcentimeter pulmonary nodules are stable. 3. Cirrhotic liver morphology. 4. Splenomegaly. Laboratory Results WBC 5.37 10^3/uL (3.29-11.43) 09/07/25 18:20 RBC 3.93 10^6/uL (3.85-5.65) 09/07/25 18:20 Hgb 10.80 g/dL (11.27-16.99) L 09/07/25 18:20 Hct 34.9 % (36-47) L 09/07/25 18:20 MCV 88.8 fl (85-98) 09/07/25 18:20 MCH 27.5 pg (27-33) 09/07/25 18:20 MCHC 30.9 g/dL (30-55) 09/07/25 18:20 RDW 15.1 % (12.1-15.1) 09/07/25 18:20 Plt Count 136 10^3/cmm (157-399) L 09/07/25 18:20 MPV 11.7 fL (7.4-10.4) H 09/07/25 18:20 Neut % (Auto) 56.9 % 09/07/25 18:20 Lymph % (Auto) 34.6 % 09/07/25 18:20 [place]ton % (Auto) 6.3 % 09/07/25 18:20 Eos % (Auto) 1.3 % 09/07/25 18:20 Baso % (Auto) 0.7 % 09/07/25 18:20 Neut # (Auto) 3.05 10^3/uL (1.8-7.7) 09/07/25 18:20 Lymph # (Auto) 1.9 10^3/uL (0.8-4.8) 09/07/25 18:20 Overton # (Auto) 0.3 10^3/uL (0.2-0.9) 09/07/25 18:20 Eos # (Auto) 0.1 10^3/uL (0.0-0.8) 09/07/25 18:20 Baso # (Auto) 0.0 10^3/uL (0.0-0.1) 09/07/25 18:20 Nucleated RBC % (auto) 0 % 09/07/25 18:20 Nucleated RBCs # 0.0 /100WBC 09/07/25 18:20 D-Dimer 0.53 ug/mLFEU (0-0.59) 09/07/25 18:20 Sodium 141 mmol/L (136-145) 09/07/25 18:20 Potassium 3.8 mmol/L (3.5-5.1) 09/07/25 18:20 Chloride 104 mmol/L (98-107) 09/07/25 18:20 Carbon Dioxide 21 mmol/L (22-29) L 09/07/25 18:20 Anion Gap 19.8 (5-19) H 09/07/25 18:20 BUN 23 mg/dL (8-23) 09/07/25 18:20 Creatinine 1.3 mg/dL (0.5-0.9) H 09/07/25 18:20 GFR Calculation Not Reportable 09/07/25 18:20 Glucose 175 mg/dL (65-115) H 09/07/25 18:20 Calculated Osmolality 300 mOsm/kg (285-295) H 09/07/25 18:20 Calcium 9.4 mg/dL (8.5-10.5) 09/07/25 18:20 Total Bilirubin 0.6 mg/dL (0.15-1.2) 09/07/25 18:20 AST 24 U/L (0-32) 09/07/25 18:20 ALT 17 U/L (0-33) 09/07/25 18:20 Alkaline Phosphatase 105 U/L (35-105) 09/07/25 18:20 Troponin T Baseline 15 ng/L (0-10) H 09/07/25 18:20 Troponin T 120 Minute 12.99 ng/L (0-10) H 09/07/25 20:11 Delta Troponin T -2.01 ABS# (0-10) L 09/07/25 20:11 NT-Pro-B Natriuret Pep 278 pg/mL (0-450) 09/07/25 18:20 Total Protein 7.3 g/dL (6.6-8.7) 09/07/25 18:20 Albumin 4.6 g/dL (3.5-5.2) 09/07/25 18:20 Globulin 2.7 g/dL (1.3-4.6) 09/07/25 18:20 All radiology interpretation(s) finalized by discharge Discharge Plan Discharge Patient Disposition: Home Clinical Impression: Mass of upper lobe of right lung, Pneumonia Condition: Stable Prescriptions: New doxycycline hyclate 100 mg tablet 100 mg PO BID 7 Days Qty: 14 0RF Continued hydrocodone-acetaminophen 5-325 mg tablet 1 tab PO Q6H PRN (Reason: pain) Qty: 7 0RF No Action hydrochlorothiazide 12.5 mg tablet 12.5 mg PO DAILY Rx Instructions: pt states she takes care of her own medications-pt states she takes this medication-external med history shows last filled 07/21/2020 90d/s aspirin 325 mg tablet 325 mg PO DAILY Rx Instructions: pt states she takes care of her own medications-pt states she takes this medication omeprazole 20 mg capsule,delayed release(DR/EC) 20 mg PO BID Rx Instructions: pt states she takes this medication alprazolam 0.5 mg tablet 0.5 mg PO DAILY levothyroxine 125 mcg capsule 125 mcg PO DAILY metoprolol succinate 50 mg tablet extended release 24 hr 50 mg PO DAILY Rx Instructions: pt states she takes care of her own medications-pt states she takes this medication-external med history shows last filled 08/17/2020 metformin 500 mg tablet extended release 24 hr 500 mg PO DAILY Rx Instructions: pt states she takes care of her own medications-pt states she takes this medication-external med history shows last filled 07/21/2020 90d/s ondansetron 8 mg tablet,disintegrating 8 mg PO .q6 PRN (Reason: nausea and vomiting) Qty: 14 0RF Miralax 17 gram/dose powder 17 g PO DAILY Qty: 510 0RF Rx Instructions: Take 1 scoop daily while taking pain medications. Discharge Orders: Discharge ED (Routine); Ordered 09/07/25 Ordered By: James Jean Referrals: Inocente Kennedy MD [Primary Care Provider, Family Practice] Patient Instructions: Pneumonia (ED), Opioid Safety, Pain Management, Patient Portal & Basia Instructions Activity Restrictions/Additional Instructions: Antibiotics as directed. Use pain medication for significant pain. Return for worsening shortness of breath, worsening pain despite treatment, fever despite 2-3 doses of antibiotics, any other concerning symptoms. Call your doctor tomorrow for a follow-up appointment this coming week. You may require repeat imaging at some point as we discussed. Print Language: Bengali Coding Level of Care Code ED Office Services Manager for Ch[facility] Michelle Heart Score HEART Score Components History: Slightly Suspicous EKG: Non-specific Changes Age: 65 or more yrs Risk Factors: 1 or 2 Risk Factors Troponin: Baseline Trop <16 ng/L HEART Score RESULT HEART Score: 4
[2025-09-07 19:00] LABS: Troponin(5th) Baseline 15 ng/L (0-10)
[2025-09-07 19:04] LABS: Alanine Aminotransferase 17 U/L (0-33); Albumin Level 4.6 g/dL (3.5-5.2); Alkaline Phosphatase 105 U/L (35-105); Anion Gap 19.8 (5-19); Aspartate Amino Transferase 24 U/L (0-32); Blood Urea Nitrogen 23 mg/dL (8-23); Calcium 9.4 mg/dL (8.5-10.5); Carbon Dioxide 21 mmol/L (22-29); Chloride 104 mmol/L (98-107); Creatinine Clr Calc Pharmacy 28.6631; Globulin 2.7 g/dL (1.3-4.6); Glucose 175 mg/dL (65-115); Osmolality Calculated 300 mOsm/kg (285-295); Potassium 3.8 mmol/L (3.5-5.1); Sodium 141 mmol/L (136-145); Total Protein 7.3 g/dL (6.6-8.7)
[2025-09-07 19:07] LABS: NT Pro B Type Natriuretic Pept 278 pg/mL (0-450)
[2025-09-07] MEDS: morphine 4 mg/mL SDV 1 mL 2 MG IVP (19:10)
[2025-09-07] MEDS: ondansetron 2 mg/ML SDV 2 mL 4 MG IVP (19:12)
[2025-09-07] MEDS: nitroglycerin 1 gm/inch oint Pkt 1 INCH TOPICAL (19:14)
--- NOTE | 2025-09-07 19:22 | CTR_ITS ---
PROCEDURE INFORMATION: Exam: CTA Chest With Contrast Exam date and time: 09/07/2025 7:35 PM Age: 89 years old Clinical indication: Radiating; C/O chest and upper back pain with hypertension; Additional info: Chest pain back pain TECHNIQUE: Imaging protocol: Computed tomographic angiography of the chest with contrast. Exam focused on the arteries. 3D rendering (Not supervised by radiologist): MIP and/or 3D reconstructed images were created by the technologist. Radiation optimization: All CT scans at this facility use at least one of these dose optimization techniques: automated exposure control; mA and/or kV adjustment per patient size (includes targeted exams where dose is matched to clinical indication); or iterative reconstruction. Contrast material: OMNI 350; Contrast volume: 100 ml; Contrast route: INTRAVENOUS (IV); COMPARISON: 1. CR (CHEST, ) 09/07/2025 6:[address] angio chest PE protcl [id number] 04/03/2012 12:33 AM RADIATION DOSE METRICS: Total DLP (mGy-cm): 572.69 FINDINGS: Pulmonary arteries: Normal. No pulmonary emboli. Aorta: Mild systemic atherosclerosis without aortic aneurysm. No aortic dissection. Lungs: Right apical ground-glass opacity measuring approximately 2.3 x 2.2 cm on axial image 18 of series 10 and 3.5 cm in CC dimension on coronal image 26 of series 11 with approximately 6 mm solid component at the posterior aspect on axial image 18 of series 10. This previously measured approximately 2.0 x 1.5 x 2.6 cm. There is also thickened bandlike opacity extending medially as well as associated mild bronchiectasis/bronchiolectasis. Additional scattered subcentimeter pulmonary nodules, some of which are calcified, are stable. Mild dependent atelectasis. Pleural spaces: Unremarkable. No pneumothorax. No pleural effusion. Heart: Mild cardiomegaly. No pericardial effusion. Coronary arteries: Mild coronary artery calcification. Lymph nodes: No enlarged lymphadenopathy. Calcified mediastinal nodes in keeping with sequela of old granulomatous disease. Liver: Nodular hepatic contour. Subcentimeter hypodensity too small to characterize. Calcified granuloma. Spleen: Partially visualized splenomegaly with prominent splenule medially. Bones/joints: No acute fracture. Degenerative changes along the spine and shoulders. Soft tissues: Unremarkable. CT/CT angio chest [id number] IMPRESSION: 1. Increased size right apical ground-glass opacity measuring up to 3.5 cm with 6 mm solid component raises concern for malignancy. 2. Additional scattered subcentimeter pulmonary nodules are stable. 3. Cirrhotic liver morphology. 4. Splenomegaly.
[2025-09-07] MEDS: iohexol 350 mg/mL 500 mL Btl (per mL) IV (19:45)
[2025-09-07 20:32] LABS: Troponin 5 2HR 12.99 ng/L (0-10); Troponin 5 2HR Delta -2.01 ABS# (0-10)
[2025-09-07] MEDS: hyDRALAzine 20 mg/mL INJ 1 mL IVP (21:51)
== END 2025-09-07 22:35 | disposition home or self-care (01) ==
PROVIDERS: Emergency Provider Emergency Medicine; PCP Family Medicine
DX: J18.9 Pneumonia, unspecified organism (principal); R91.8 Other nonspecific abnormal finding of lung field; Z79.82 Long term (current) use of aspirin; Z79.84 Long term (current) use of oral hypoglycemic drugs; E11.22 Type 2 diabetes mellitus with diabetic chronic kidney disease; I12.9 Hypertensive chronic kidney disease with stage 1 through stage 4 chronic kidney disease, or unspecified chronic kidney disease; N18.9 Chronic kidney disease, unspecified
CPT/HCPCS: 36415; 71045; 71275; 80053; 83880; 84484; 85025; 85378; 93005; 96374; 96375; 99285; J0360; J2270; J2405; J9999